=== PATIENT | female | born 1935 | race Two or more races ===

== ENCOUNTER 2016-11-19 10:22 | Observation (INO) | payer OTHER ==
[2016-11-19] MEDS ORDERED: ASPIRIN 81 MG CHEWABLE TABLETS PO ONE (10:53)
[2016-11-19] MEDS ORDERED: ASPIRIN 81 MG CHEWABLE TABLETS ONE (11:04)
[2016-11-19 11:15] LABS: EOSINOPHIL 2.3 % (0-4.5); MCH 33.1 pg (25.7-33.7); MCHC 33.7 g/dl (32.0-36.0); MEAN CELL VOLUME 98.1 fl (80-96); MEAN PLT VOLUME 8.1 fl (7.5-11.1); PLATELET COUNT 231 K/MM3 (134-434); RDW 14.3 % (11.6-15.6); WHITE BLOOD COUNT 4.6 K/mm3 (4.0-10.0)
--- NOTE | 2016-11-19 11:25 | PDOC ---
History of Present Illness - General Chief Complaint: Chest Pain Stated Complaint: CHEST PAIN Time Seen by Provider: 11/19/16 10:47 History Source: Patient Exam Limitations: No Limitations - History of Present Illness Initial Comments: 11/19/16 11:23 81-year-old female presents to the ED with complaints of left-sided chest pressure that began upon awakening this morning. Patient denies associated symptoms such as dizziness, nausea, diaphoresis, palpitations, shortness of breath, or pain worsened with movement. 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 Patient states did not take any aspirin and decided come to the ER for further evaluation. Patient denies recent illness, recent change in medications, recent fever, cough , recent travel, or recent injury. Presenting Symptoms: Chest Pain Timing/Duration: reports: constant Severity/Quality: reports: moderate, pressure Location: reports: substernal Chest Pain Radiation: reports: no radiation Activities at Onset: reports: none Prior Chest Pain/Cardiac Workup: reports: Echocardiography Nitro Today/Relief: Yes: no nitro taken today Aspirin Received prior to arrival (Core Measure): Yes: no aspirin today, 81 mg x 2, provided by ED Associated Symptoms: Yes: Chest Pain/pressure Past History - Past Medical History Allergies/Adverse Reactions: Allergies Allergy/AdvReac Type Severity Reaction Status Date / Time No Known Allergies Allergy Verified 11/19/16 10:35 Home Medications: Ambulatory Orders Amlodipine Besylate 5 mg PO DAILY 11/19/16 Clopidogrel Bisulfate [Plavix -] 75 mg PO DAILY 11/19/16 Losartan Potassium 100 mg PO DAILY 11/19/16 Cardiac Disorders: Yes (CAD) HTN: Yes - Surgical History Cholecystectomy: Yes - Psycho/Social/Smoking Cessation Hx Anxiety: No Suicidal Ideation: No Smoking History: Never smoked Have you smoked in the past 12 months: No Hx Alcohol Use: No Drug/Substance Use Hx: No Substance Use Type: None Patient Lives Alone: No Review of Systems - Review of Systems Able to Perform ROS?: Yes Constitutional: No: Symptoms Reported HEENTM: No: Symptoms Reported Respiratory: No: Symptoms reported Cardiac (ROS): Yes: Chest Pain ABD/GI: No: Symptoms Reported : No: Symptoms Reported Musculoskeletal: No: Symptoms Reported Integumentary: No: Symptoms Reported Neurological: No: Symptoms reported Endocrine: No: Symptoms Reported Hematologic/Lymphatic: No: Symptoms Reported *Physical Exam - Vital Signs Last Vital Signs Temp Pulse Resp BP Pulse Ox 97.9 F 78 18 145/69 97 11/19/16 10:24 11/19/16 10:24 11/19/16 10:24 11/19/16 10:24 11/19/16 10:24 - Physical Exam General Appearance: Yes: Nourished, Appropriately Dressed. No: Apparent Distress HEENT: positive: EOMI, BECKIE. negative: Pale Conjunctivae Neck: positive: Supple Respiratory/Chest: positive: Lungs Clear, Normal Breath Sounds. negative: Chest Tender, Respiratory Distress, Accessory Muscle Use Cardiovascular: positive: Regular Rhythm, Regular Rate. negative: Murmur Gastrointestinal/Abdominal: positive: Soft. negative: Distended, Tenderness Extremity: positive: Normal Capillary Refill. negative: Pedal Edema Integumentary: positive: Normal Color, Warm, Moist Neurologic: positive: Motor Strength 5/5 (ambulatory) Heart Score/ECG Review - History History: Slightly suspicious - Electrocardiogram EKG: Normal - Age Age: >/= 65 - Risk Factors Risk Factors Heart Score: Yes Hx Hypertension, Yes Positive family hx of cardiac disease Based on the list above the patient has:: 1-2 risk factors - Troponin Troponin: </= normal limit - Score Heart Score - Total: 3 - ECG Intrepretation Rhythm: Regular Rhythm (lvh, rate 76. No previous for comparison. QTC 474) ED Treatment Course - LABORATORY CBC & Chemistry Diagram: 11/19/16 Unknown 11/19/16 Unknown - ADDITIONAL ORDERS Additional order review: Laboratory Results 11/19/16 11/19/16 Unknown Unknown INR 1.08 Sodium 142 Potassium 4.5 Chloride 106 Carbon Dioxide 31 Anion Gap 5 L BUN 17 D Creatinine 0.9 Creat Clearance w eGFR 59.94 Random Glucose 99 Calcium 8.5 Magnesium 2.3 Total Bilirubin 0.6 D AST 29 D ALT 28 Alkaline Phosphatase 79 D Creatine Kinase 234 H D CK-MB (CK-2) 2.747 Troponin I < 0.02 Total Protein 7.3 Albumin 3.8 D 11/19/16 Unknown RBC 3.81 MCV 98.1 H MCHC 33.7 RDW 14.3 MPV 8.1 Neutrophils % 58.0 Lymphocytes % 28.3 Monocytes % 10.4 H Eosinophils % 2.3 Basophils % 1.0 - RADIOLOGY Radiology Studies Ordered: Category Date Time Status CHEST X-RAY PORTABLE* [RAD] Stat Radiology 11/19/16 10:54 Completed - Medications Given in the ED: ED Medications Discontinued Medications Generic Name Dose Route Start Last Admin Trade Name Sherrie PRN Reason Stop Dose Admin Aspirin 162 mg 11/19/16 10:53 11/19/16 11:17 Asa - PO 11/19/16 10:54 162 mg ONCE ONE Administration Medical Decision Making - Medical Decision Making 11/19/16 11:24 Patient states since around 8 AM has had constant left-sided chest pressure without associated symptoms. Patient on exam had no reproducible pain. Vital signs stable. Patient does have history of CAD. Heart score was 3. Patient will be ordered for full cardiac workup included baby aspirin oxygen and will consult her PCP once diagnostics are resulted 11/19/16 12:26 Laboratory Tests 11/19/16 11/19/16 11/19/16 Unknown Unknown Unknown WBC 4.6 Hgb 12.6 Hct 37.3 Plt Count 231 Neutrophils % 58.0 INR 1.08 Sodium 142 Potassium 4.5 Chloride 106 Carbon Dioxide 31 Anion Gap 5 L BUN 17 D Creatinine 0.9 Random Glucose 99 Calcium 8.5 Magnesium 2.3 AST 29 D ALT 28 Creatine Kinase 234 H D CK-MB (CK-2) 2.747 Troponin I < 0.02 Patient still complaining of left-sided chest pressure with only slight resolution after receiving aspirin. Patient will be ordered for 2 of morphine. Daughter was able to contact the son who states patient has been seen by Dr. Sagastume at the clinic. Consultation will be placed in the computer for Dr. Sagastume and spoke to the hospitalist who accepted the patient to telemetry observation. 11/19/16 12:34 Dr. Salinas here in the ED and discussed case with him. *DC/Admit/Observation/Transfer Diagnosis at time of Disposition: Chest pain Qualifiers: Chest pain type: unspecified Qualified Code(s): R07.9 - Chest pain, unspecified - Discharge Dispostion Admit: Yes Decision to Admit order Date/Time: Decision to Admit Order Category Date Time Status Decision to Admit to Hospital Routine Admission 11/19/16 12:32 Active - Referrals Referrals: Erica Hill MD [Primary Care Provider] -
[2016-11-19 11:27] LABS: INR 1.08 (0.82-1.09); PROTHROMBIN TIME (PATIENT) 11.9 SEC (9.98-11.88)
[2016-11-19 11:48] LABS: ALBUMIN 3.8 g/dl (3.4-5.0); ANION GAP 5 (8-16); BILIRUBIN,TOTAL 0.6 mg/dL (0.2-1.0); CALCIUM 8.5 mg/dL (8.5-10.1); CO2 31 mmol/L (21-32); COCKROFT - GAULT 63.1465; CREATININE 0.9 mg/dL (0.55-1.02); GLUCOSE,RANDOM 99 mg/dL (74-106); MAGNESIUM 2.3 mg/dL (1.8-2.4); SGOT/AST 29 U/L (15-37); SGPT/ALT 28 U/L (12-78); TOT PROT 7.3 g/dl (6.4-8.2)
[2016-11-19 11:50] LABS: ALK PHOS 79 U/L (45-117); TROPONIN I < 0.02 ng/ml (0.00-0.05)
[2016-11-19] MEDS ORDERED: morphine CARPU-JECT 2 MG/1 ML DISP.SYRIN IVPUSH ONE (12:27)
[2016-11-19] MEDS ORDERED: morphine CARPU-JECT 2 MG/1 ML DISP.SYRIN ONE (12:33)
--- NOTE | 2016-11-19 12:55 | CON.CARD ---
Consult Consult Specialty:: cardio Referred by:: ER (george) Reason for Consultation:: cp - History of Present Illness Chief Complaint: cp History of Present Illness: 81 female here with cp. says cp present since 7am. has not resolved. L pectoral diffuse, assctd with pain in L upper neck near jaw, and L forearm--? if radiates or not (dtr translating). the pain has not resolved since it began. has had it off and on rarely for about 1 yr but usually doesn't last this long. pain much worse when tries to lift left arm. no pleuritic or other motion component. denies assctd diaph or sob. + dizzy denies prior h/o CO or CAD/stent PMH: HTN denies DM never cigs FH: mother CAD/CO - Alcohol/Substance Use Hx Alcohol Use: No - Smoking History Smoking history: Never smoked Have you smoked in the past 12 months: No Home Medications - Allergies Allergies/Adverse Reactions: Allergies Allergy/AdvReac Type Severity Reaction Status Date / Time No Known Allergies Allergy Verified 11/19/16 10:35 - Home Medications Home Medications: Ambulatory Orders Amlodipine Besylate 5 mg PO DAILY 11/19/16 Clopidogrel Bisulfate [Plavix -] 75 mg PO DAILY 11/19/16 Losartan Potassium 100 mg PO DAILY 11/19/16 Review of Systems - Review of Systems Constitutional: denies: Chills, Fever Eyes: denies: Eye Pain HENT: denies: Nasal Congestion Neck: denies: Stiffness Cardiovascular: denies: Palpitations Respiratory: denies: Orthopnea, PND Gastrointestinal: denies: Diarrhea, Rectal Bleeding Genitourinary: denies: Burning, Hematuria Musculoskeletal: denies: Muscle Pain Integumentary: denies: Rash Neurological: denies: Numbness, Seizure, Syncope Endocrine: denies: Excessive Sweating Hematology/Lymphatic: denies: Excessive Bleeding Vital Signs: Vital Signs Temperature 97.9 F 11/19/16 10:24 Pulse Rate 68 11/19/16 12:40 Respiratory Rate 20 11/19/16 12:40 Blood Pressure 148/83 11/19/16 12:40 O2 Sat by Pulse Oximetry (%) 100 11/19/16 12:40 Constitutional: Yes: Well Nourished, No Distress Eyes: No: Sclera Icterus HENT: No: Nasal Congestion Neck: No: Decreased ROM Respiratory: Yes: CTA Bilaterally. No: Accessory Muscle Use, Rales, Wheezes Gastrointestinal: Yes: Normal Bowel Sounds. No: Distention, Hepatomegaly, Palpable Mass, Tenderness Cardiovascular: Yes: Regular Rate and Rhythm, Other (++tenderness to palpation L pectoral (doesn't reproduce pain)) JVD: No Carotid Bruit: No PMI: Non-Displaced Heart Sounds: Yes: S1, S2. No: Gallop Murmur: No: Systolic Murmur, Diastolic Murmur Musculoskeletal: Yes: Other (No kyphosis) Extremities: No: Cold, Cyanosis Edema: No Peripheral Pulses: 2+ Left Carotid, 2+ Right Carotid, 2+ Left Doralis Pedis, 2+ Right Dorsalis Pedis Integumentary: No: Jaundice Neurological: Yes: Alert, Oriented (x3) Psychiatric: No: Agitated - Other Data Labs, Other Data: CBC, BMP 11/19/16 Unknown 11/19/16 Unknown INR, PTT INR 1.08 (0.82-1.09) 11/19/16 Unknown Troponin, BNP 11/19/16 Unknown Troponin I < 0.02 Troponin, BNP 11/19/16 Unknown Troponin I < 0.02 Laboratory Tests 11/19/16 11/19/16 Unknown Unknown WBC 4.6 Hgb 12.6 Plt Count 231 Sodium 142 Potassium 4.5 BUN 17 D Creatinine 0.9 AST 29 D ALT 28 Creatine Kinase 234 H D Troponin I < 0.02 ekg: NSR, normal axis/intervals. no path q. ? LVH. NSST-T lateral/infer leads ( no old) Imaging - Results Chest X-ray: Report Reviewed (weak insp effort, no chf or infiltrate seen) Assessment/Plan atypical CP: -unremitting pain since 7am, suspect m-skel etiology given exacerbation with lifting L arm -marked tenderness to palpation in this area -chronic sx, also fits with m-skel etiology -denies prior CAD hx, says she sees rudolph at [address] (will check office chart later) -ecg with nonspecific ST-T, no old to compare at present -cardiac enz neg x 1--rpt at 8 hrs -d/w'd JARAD Moeller in ER: given morphine 10min ago--if no improvement after 30 min, rec dose of toradol or 600mg motrin--if pain persists, give trial of SL nitro but doubt will have effect -further decisions about stress testing (inpt vs outpt) depending on office records review and clinical course HTN: -bp conrolled -cont home meds
[2016-11-19] MEDS ORDERED: amLODIPine BESYLATE 5 MG TABLET (FP) ONE (13:09)
[2016-11-19] MEDS: amLODIPine BESYLATE 5 MG TABLET (FP) PO SCH (13:16)
[2016-11-19 14:39] LABS: THYROID STIMULATING HORMONE 0.19 uIU/ml (0.358-3.74)
--- NOTE | 2016-11-19 15:20 | EKG ---
Test Reason : Blood Pressure : / mmHG Vent. Rate : 076 BPM Atrial Rate : 076 BPM P-R Int : 164 ms QRS Dur : 096 ms QT Int : 422 ms P-R-T Axes : 004 020 140 degrees QTc Int : 474 ms NORMAL SINUS RHYTHM MINIMAL VOLTAGE CRITERIA FOR LVH, MAY BE NORMAL VARIANT NONSPECIFIC T WAVE ABNORMALITY PROLONGED QT ABNORMAL ECG WHEN COMPARED WITH ECG OF 04-MAY-2016 22:03, NO SIGNIFICANT CHANGE WAS FOUND Confirmed by NIRMALA FISHMAN, KENYON ([id number]) on 11/19/2016 3:20:13 PM Referred By: Confirmed By:KENYON SILVESTRE MD
--- NOTE | 2016-11-19 15:28 | HP ---
CHIEF COMPLAINT: Chest pain PCP: Dr. Erica Hill HISTORY OF PRESENT ILLNESS: Patient is am 81 year old female with a PMHx of HTN who presented for left sided chest pain that started suddenly yesterday evening when sitting at home her usual state of health. Patient describes the pain as a pressure like pain radiating to the left jaw and neck and constant in nature. She reports she ignored it in when it first happened yesterday but woke up this morning with similar pain, which prompted this hospital visit. Patient states pain is not exacerbated with movement and there are no alleviating factors. Patient reports associated symptoms of a dry cough that has been going on for several years but has worsened the last few nights especially when laying down at night. Otherwise, patient denies fever, chills, nausea, vomiting, abdominal pain, palpitations. Patient denies any recent illnesses or change in medications. She denies being around sick contacts. Last Echo was done May 2016 and was normal with no motion wall abnormalities or LV dysfunction. ER course was notable for: (1) EKG NSR with no ST elevations (2) First set troponin negative (3) Plavix 75mg given Recent Travel: Denies PAST MEDICAL HISTORY: HTN PAST SURGICAL HISTORY: Cholecystectomy Social History: Smoking: Denies Alcohol: Denies Drugs: Denies Family History: Noncontributory Allergies: No Known Allergies Allergy (Verified 11/19/16 10:35) HOME MEDICATIONS: Home Medications Medication Instructions Recorded Amlodipine Besylate 5 mg PO DAILY 11/19/16 Clopidogrel Bisulfate [Plavix -] 75 mg PO DAILY 11/19/16 Losartan Potassium 100 mg PO DAILY 11/19/16 REVIEW OF SYSTEMS CONSTITUTIONAL: Absent: fever, chills, diaphoresis, generalized weakness, malaise, loss of appetite, weight change HEENT: Absent: rhinorrhea, nasal congestion, throat pain, throat swelling, difficulty swallowing, mouth swelling, ear pain, eye pain, visual changes CARDIOVASCULAR: chest pain Absent: syncope, palpitations, irregular heart rate, lightheadedness, peripheral edema RESPIRATORY: Dry cough, orthopnea Absent: shortness of breath, dyspnea with exertion, wheezing, stridor, hemoptysis GASTROINTESTINAL: Absent: abdominal pain, abdominal distension, nausea, vomiting, diarrhea, constipation, melena, hematochezia GENITOURINARY: Absent: dysuria, frequency, urgency, hesitancy, hematuria, flank pain, genital pain MUSCULOSKELETAL: Absent: myalgia, arthralgia, joint swelling, back pain, neck pain SKIN: Absent: rash, itching, pallor HEMATOLOGIC/IMMUNOLOGIC: Absent: easy bleeding, easy bruising, lymphadenopathy, frequent infections ENDOCRINE: Absent: unexplained weight gain, unexplained weight loss, heat intolerance, cold intolerance NEUROLOGIC: Absent: headache, focal weakness or paresthesias, dizziness, unsteady gait, seizure, mental status changes, bladder or bowel incontinence PSYCHIATRIC: Absent: anxiety, depression, suicidal or homicidal ideation, hallucinations. PHYSICAL EXAMINATION Vital Signs - 24 hr 11/19/16 12:40 Pulse Rate [ 68 Left Radial] Respiratory 20 Rate Blood Pressure 148/83 [Left Arm] O2 Sat by Pulse 100 Oximetry (%) GENERAL: Awake, alert, and fully oriented, in no acute distress. HEAD: Normal with no signs of trauma. EYES: Pupils equal, round and reactive to light, extraocular movements intact, sclera anicteric, conjunctiva clear. NECK: (+) JVD, No bruits appreciated LUNGS: Breath sounds equal, clear to auscultation bilaterally. No wheezes, and no crackles. No accessory muscle use. CHEST: Moderate left pectoris tenderness upon palpation. Regular rate and rhythm , normal S1 and S2 without murmur, rub or gallop. ABDOMEN: Soft, nontender, not distended, normoactive bowel sounds, no guarding, no rebound, no masses. UPPER EXTREMITIES: No peripheral edema. LOWER EXTREMITIES: No peripheral edema. NEUROLOGICAL: Normal speech. Motor strength 5/5. Sensory intact PSYCHIATRIC: Cooperative. Good eye contact. Appropriate mood and affect. SKIN: Warm, dry, normal turgor, no rashes or lesions noted, normal capillary refill. Laboratory Results - last 24 hr 11/19/16 11/19/16 11/19/16 13:46 Unknown Unknown WBC 4.6 RBC 3.81 Hgb 12.6 Hct 37.3 MCV 98.1 H MCHC 33.7 RDW 14.3 Plt Count 231 MPV 8.1 Neutrophils % 58.0 Lymphocytes % 28.3 Monocytes % 10.4 H Eosinophils % 2.3 Basophils % 1.0 INR 1.08 Sodium Potassium Chloride Carbon Dioxide Anion Gap BUN Creatinine Creat Clearance w eGFR Random Glucose Calcium Magnesium Total Bilirubin AST ALT Alkaline Phosphatase Creatine Kinase CK-MB (CK-2) Troponin I B-Natriuretic Peptide 95.68 Total Protein Albumin TSH 0.19 L 11/19/16 Unknown WBC RBC Hgb Hct MCV MCHC RDW Plt Count MPV Neutrophils % Lymphocytes % Monocytes % Eosinophils % Basophils % INR Sodium 142 Potassium 4.5 Chloride 106 Carbon Dioxide 31 Anion Gap 5 L BUN 17 D Creatinine 0.9 Creat Clearance w eGFR 59.94 Random Glucose 99 Calcium 8.5 Magnesium 2.3 Total Bilirubin 0.6 D AST 29 D ALT 28 Alkaline Phosphatase 79 D Creatine Kinase 234 H D CK-MB (CK-2) 2.747 Troponin I < 0.02 B-Natriuretic Peptide Total Protein 7.3 Albumin 3.8 D TSH ASSESSMENT/PLAN: Patient is am 81 year old female with a PMHx of HTN who presented for left sided chest pain that started suddenly yesterday. Patient was found to have moderate pain on palpation of left chest wall. Patient admitted for further monitoring and management. Atypical Chest Pain -Likely musculoskeletal due to dry cough for several years, exacerbated pain when palpating left pectoris area and when lifting arm -HEART Score 5 -Intermediate Risk for CAD, cardiology consult placed -Troponin negative x1. Repeat Trops pending -Last Echo done on 05/2016 normal valve function with no LV dysfunction, as per cardiology. Repeat ECHO ordered -History of orthopnea and dry cough, BNP ordered -ASA 162 given -Plavix 75mg ordered -Tylenol 650mg PO PRN for musculoskeletal pain -Cardiac monitoring -Lipid panel and A1C ordered -Cardiology consult appreciated HTN-Controlled -Continue Amlodipine Besylate 5mg daily -Continue Losartan Potassium 100mg daily -Continue to monitor BP F/E/N -No fluids -Electrolytes wnl -Diabetic/Sodium controlled diet Prophylaxis -Heparin 5000 units SQ BID Disposition -Admitted to telemetry for overnight monitoring Visit type - Emergency Visit Emergency Visit: Yes ED Registration Date: 11/19/16 Care time: The patient presented to the Emergency Department on the above date and was hospitalized for further evaluation of their emergent condition. - New Patient This patient is new to me today: Yes Date on this admission: 11/21/16 - Critical Care Critical Care patient: No
--- NOTE | 2016-11-19 15:36 | PN ---
Teaching Attending Note Name of Resident: Juliette Acosta ATTENDING PHYSICIAN STATEMENT I saw and evaluated the patient. I reviewed the resident's note and discussed the case with the resident. I agree with the resident's findings and plan as documented. SUBJECTIVE: 81 yrs old F lives at home H/O HTN, High Cholesterol, no H/O CAD or CHF present with Left sided pectoral chest pain that started yesterday radiates to Left shoulder and neck with chest wall tenderness,, patient has been having dry cough for past few days that worsened at night with excertional SOB, no fever, expectoration or chills. 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 non focal LABS; Reviewed Laboratory Results - last 24 hr CBC, BMP 11/19/16 Unknown 11/19/16 Unknown Troponin I Normal ASSESSMENT AND PLAN:81 yrs old F lives at home H/O HTN, High Cholesterol, no H/ O CAD or CHF present with Left sided pectoral chest pain that started yesterday radiates to Left shoulder and neck with chest wall tenderness,, patient has been having dry cough for past few days that worsened at nights, normal serial CE and non dynamic EKG; Impression Atypical chest Pain with multiple CAd risk, patient has intermediate risk for CAd will F/u serial CE, Cardiology consult recommendation , considering cough F/U Pro BNP, ECHO to r/O diastolic dysfunctions/CHF, ASa, Statin, pain medication as pain has musculoskeletal component. F/U TSH, Lipid Panel, HbA1C Discussed with the customer experience intern.
[2016-11-19 18:41] VITALS: BMI 35.3
[2016-11-19] MEDS ORDERED: ACETAMINOPHEN 325 MG TABLET (FP) PO PRN (18:55)
[2016-11-19] MEDS: HEPARIN NA (PORCINE) 5,000 UNITS/ML 1ML VIAL SQ SCH (22:22)
[2016-11-19 22:31] LABS: TROPONIN I < 0.02 ng/ml (0.00-0.05)
[2016-11-20 07:41] LABS: INR 1.06 (0.82-1.09); PROTHROMBIN TIME (PATIENT) 11.7 SEC (9.98-11.88)
[2016-11-20 07:57] VITALS: BP 122/69; PULSE 75; TEMP 98
--- NOTE | 2016-11-20 08:55 | PN ---
Progress Note, Physician Chief Complaint: cp History of Present Illness: cp much resolved no sob, palpit, syncope - Current Medication List Current Medications: Active Medications Acetaminophen (Tylenol -) 650 mg PO Q6H PRN PRN Reason: FEVER OR PAIN Amlodipine Besylate (Norvasc -) 5 mg PO DAILY [facility] Last Admin: 11/19/16 13:16 Dose: 5 mg Clopidogrel Bisulfate (Plavix -) 75 mg PO DAILY [facility] Heparin Sodium (Porcine) (Heparin -) 5,000 unit SQ BID [facility] Last Admin: 11/19/16 22:22 Dose: 5,000 unit Losartan Potassium (Cozaar -) 100 mg PO DAILY [facility] - Objective Vital Signs: Vital Signs Temperature 98.0 F 11/20/16 07:56 Pulse Rate 75 11/20/16 07:56 Respiratory Rate 18 11/20/16 07:56 Blood Pressure 122/69 11/20/16 07:56 O2 Sat by Pulse Oximetry (%) 96 11/20/16 05:00 Constitutional: Yes: Well Nourished, No Distress, Calm Cardiovascular: Yes: Regular Rate and Rhythm, S1, S2. No: Gallop, Murmur Respiratory: Yes: Regular, CTA Bilaterally. No: Accessory Muscle Use, Rales, Wheezes Extremities: No: Cold Edema: No Neurological: Yes: Alert, Oriented Psychiatric: No: Agitated Labs: CBC, BMP 11/19/16 Unknown 11/19/16 Unknown INR, PTT INR 1.06 (0.82-1.09) 11/20/16 05:42 - ....Imaging EKG: Other (tele: NSR) Assessment/Plan MPI 05/27 (vee): no STs. no ischemia. nl EF Echo 05/27: nl lv/rv, no sig valve path atypical CP: -chronic sx of L shoulder/neck/chest pain, saw rudolph for same 05/27 -nuclear stress test negative 05/27 -strong positional component with elevation of L arm -marked tenderness to palpation in L pectoral noted as well -this is m-skel system, should have outpt eval by ortho/pain mgmt/physiatry re: c-spine or L shoulder pathology HTN: -bp conrolled -cont home meds NO FURTHER CARDIAC W/U INDICATED--ok for d/c from [facility] p.o.v.
[2016-11-20 09:07] LABS: CHOLESTEROL 158 mg/dL (50-200); LDL CHOLESTEROL (ONLY SJRH) 91 mg/dL (5-100)
[2016-11-20] MEDS: HEPARIN NA (PORCINE) 5,000 UNITS/ML 1ML VIAL SQ SCH (09:52)
[2016-11-20] MEDS: amLODIPine BESYLATE 5 MG TABLET (FP) PO SCH (09:53)
[2016-11-20] MEDS ORDERED: PATIENT'S OWN MEDICATION (NON-FORMULARY) (Losartan Potassium [Losartan Potassium] 100 MG) PO SCH (10:00)
[2016-11-20] MEDS ORDERED: LOSARTAN POTASSIUM 50 MG TABLET (FP) PO SCH (10:00)
[2016-11-20] MEDS ORDERED: amLODIPine BESYLATE 5 MG TABLET (FP) PO SCH (10:00)
[2016-11-20] MEDS ORDERED: CLOPIDOGREL BISULFATE 75 MG TABLET (FP) PO SCH (10:00)
--- NOTE | 2016-11-20 10:55 | PN ---
Physical Exam: SUBJECTIVE: Patient seen and examined. She says she has discomfort in the left side of her neck and anterior left shoulder. OBJECTIVE: Vital Signs Period Temp Pulse Resp BP Sys/Beach Pulse Ox Last 24 Hr 97.6 F-98.9 F 67-76 18-20 115-148/60-83 95-100 GENERAL: The patient is awake, alert, and fully oriented, in no acute distress. NECK: Supple. No spinal/paraspinal tenderness. Decreased ROM secondary to pain. LUNGS: Breath sounds equal, clear to auscultation bilaterally, no wheezes, no crackles, no accessory muscle use. HEART: Regular rate and rhythm, S1, S2 without murmur, rub or gallop. ABDOMEN: Obese, soft, nontender, nondistended, normoactive bowel sounds, no guarding, no rebound, no hepatosplenomegaly, no masses. EXTREMITIES: 2+ pulses, warm, well-perfused, no edema. Decreased ROM right shoulder secondary to pain. Laboratory Results - last 24 hr 11/19/16 11/19/16 11/19/16 13:46 21:40 Unknown WBC 4.6 RBC 3.81 Hgb 12.6 Hct 37.3 MCV 98.1 H MCHC 33.7 RDW 14.3 Plt Count 231 MPV 8.1 Neutrophils % 58.0 Lymphocytes % 28.3 Monocytes % 10.4 H Eosinophils % 2.3 Basophils % 1.0 INR PTT (Actin FS) Sodium Potassium Chloride Carbon Dioxide Anion Gap BUN Creatinine Creat Clearance w eGFR Random Glucose Hemoglobin A1c % Calcium Magnesium Total Bilirubin AST ALT Alkaline Phosphatase Creatine Kinase 207 H CK-MB (CK-2) 2.355 Troponin I < 0.02 B-Natriuretic Peptide 95.68 Total Protein Albumin Triglycerides Cholesterol Total LDL Cholesterol HDL Cholesterol TSH 0.19 L 11/19/16 11/19/16 11/20/16 Unknown Unknown 05:42 WBC RBC Hgb Hct MCV MCHC RDW Plt Count MPV Neutrophils % Lymphocytes % Monocytes % Eosinophils % Basophils % INR 1.08 1.06 PTT (Actin FS) 31.0 Sodium 142 Potassium 4.5 Chloride 106 Carbon Dioxide 31 Anion Gap 5 L BUN 17 D Creatinine 0.9 Creat Clearance w eGFR 59.94 Random Glucose 99 Hemoglobin A1c % Calcium 8.5 Magnesium 2.3 Total Bilirubin 0.6 D AST 29 D ALT 28 Alkaline Phosphatase 79 D Creatine Kinase 234 H D CK-MB (CK-2) 2.747 Troponin I < 0.02 B-Natriuretic Peptide Total Protein 7.3 Albumin 3.8 D Triglycerides Cholesterol Total LDL Cholesterol HDL Cholesterol TSH 11/20/16 11/20/16 05:42 05:42 WBC RBC Hgb Hct MCV MCHC RDW Plt Count MPV Neutrophils % Lymphocytes % Monocytes % Eosinophils % Basophils % INR PTT (Actin FS) Sodium Potassium Chloride Carbon Dioxide Anion Gap BUN Creatinine Creat Clearance w eGFR Random Glucose Hemoglobin A1c % 6.4 H Calcium Magnesium Total Bilirubin AST ALT Alkaline Phosphatase Creatine Kinase CK-MB (CK-2) Troponin I B-Natriuretic Peptide Total Protein Albumin Triglycerides 113 Cholesterol 158 Total LDL Cholesterol 91 HDL Cholesterol 53 TSH Active Medications Generic Name Dose Route Start Last Admin Trade Name Freq PRN Reason Stop Dose Admin Acetaminophen 650 mg 11/19/16 18:55 Tylenol - PO Q6H PRN FEVER OR PAIN Amlodipine Besylate 5 mg 11/19/16 12:58 11/20/16 09:53 Norvasc - PO 5 mg DAILY KENIA Administration Clopidogrel Bisulfate 75 mg 11/20/16 10:00 11/20/16 09:53 Plavix - PO 75 mg DAILY KENIA Administration Heparin Sodium (Porcine) 5,000 unit 11/19/16 22:00 11/20/16 09:52 Heparin - SQ 5,000 unit BID KENIA Administration Losartan Potassium 100 mg 11/20/16 10:00 11/20/16 09:53 Cozaar - PO 100 mg DAILY KENIA Administration ASSESSMENT/PLAN: This is an 81 year old woman with a history of HTN who presented to the ER with left sided chest pain. 1. Atypical chest pain, likely musculoskeletal - Troponin negative x 2 - Had negative nuclear stress test 05/27 - Outpatient orthopedic or physiatry evaluation 2. HTN - Continue Norvasc, Cozaar 3. Ok for discharge home with follow up with Dr. [facility] Visit type - Emergency Visit Emergency Visit: Yes ED Registration Date: 11/19/16 Care time: The patient presented to the Emergency Department on the above date and was hospitalized for further evaluation of their emergent condition. - New Patient This patient is new to me today: Yes Date on this admission: 11/20/16 - Critical Care Critical Care patient: No - Discharge Referral Referred to [facility] Med P.C.: No
== END 2016-11-20 11:47 | disposition home or self-care (01) ==
LOC: JER 10:22 → JERBED 12:32 → J4W 17:56
PROVIDERS: ADMIT Internal Medicine; ATTEND Internal Medicine
PROC: 3E033NZ Introduction of Analgesics, Hypnotics, Sedatives into Peripheral Vein, Percutaneous Approach (ICD-10-PCS; principal; 2016-11-19)
DX: R07.89 Other chest pain (principal); I25.10 Atherosclerotic heart disease of native coronary artery without angina pectoris; I10 Essential (primary) hypertension
CPT/HCPCS: 36415; 71010-TC; 80053; 80061; 82550; 82553; 83036; 83721; 83735; 83880; 84443; 84484; 85025; 85610; 85730; 93005; 93010; 99284-25; G0378; J1644

== ENCOUNTER 2018-01-19 13:31 | Observation (INO) | payer OTHER ==
--- NOTE | 2018-01-19 13:55 | PDOC ---
History of Present Illness - General Chief Complaint: Chest Pain Stated Complaint: CHEST PAIN Time Seen by Provider: 01/19/18 13:55 History Source: Patient Exam Limitations: No Limitations - History of Present Illness Initial Comments: 01/19/18 20:23 82 yo F with hx of HTN and HLD presenting with chest pain. She states it began at 10 pm last night in her left chest with radiation to her left arm and neck. She states the pain lasted until 4am today with residual left sided neck pain. The pain was described as sharp, 10/10 without aggravating factors. Denies associated SOB, lightheadedness, and trauma during this episode. This occurred while at rest. Currently, the neck pain is dull without radiation that is in the left sided of the neck from the trapezius to the pre-auricular area of the ear. Denies the following: fevers, nausea, vomiting, current chest pain, SOB, abdominal pain, diarrhea, dizziness, dysuria, and hematuria. Endorses left arm tingling. Pmhx: HTN, HLD Shx: None Meds: Does not know what she takes Allergies: None Social hx: Denies tobacco, alcohol, and drug use. Past History - Past Medical History Allergies/Adverse Reactions: Allergies Allergy/AdvReac Type Severity Reaction Status Date / Time No Known Allergies Allergy Verified 01/19/18 13:42 Home Medications: Ambulatory Orders Amlodipine Besylate 5 mg PO DAILY 11/19/16 Clopidogrel Bisulfate [Plavix -] 75 mg PO DAILY 11/19/16 Losartan Potassium 100 mg PO DAILY 11/19/16 Anemia: No Asthma: No Cancer: No Cardiac Disorders: Yes (CAD) CVA: No COPD: No CHF: No Dementia: No Diabetes: No GI Disorders: Yes (acid reflux) Disorders: No HTN: Yes Hypercholesterolemia: Yes Liver Disease: No Seizures: No - Surgical History Abdominal Surgery: Yes (gallbladder) Appendectomy: No Cardiac Surgery: No Cholecystectomy: Yes Lung Surgery: No Neurologic Surgery: No Orthopedic Surgery: No - Suicide/Smoking/Psychosocial Hx Smoking History: Never smoked Have you smoked in the past 12 months: No Hx Alcohol Use: No Drug/Substance Use Hx: No Substance Use Type: None Hx Substance Use Treatment: No Review of Systems - Review of Systems Able to Perform ROS?: Yes Constitutional: No: Chills, Diaphoresis, Fever HEENTM: Yes: Other (neck pain). No: Recent change in vision, Nose Pain, Throat Pain, Mouth Pain Respiratory: No: Cough, Shortness of Breath Cardiac (ROS): No: Chest Pain, Lightheadedness, Palpitations ABD/GI: No: Constipated, Diarrhea, Nausea, Rectal Bleeding, Vomiting, Tarry Stools : No: Burning, Dysuria, Hematuria Musculoskeletal: Yes: Muscle Pain (left side of neck and left shoulder). No: Back Pain Integumentary: No: Rash Neurological: Yes: Tingling (left arm). No: Headache, Numbness, Weakness, Unsteady Gait, Ataxia Psychiatric: No: Stressors Endocrine: No: Unexplained Weight Gain Hematologic/Lymphatic: No: Anemia *Physical Exam - Vital Signs Last Vital Signs Temp Pulse Resp BP Pulse Ox 98.6 F 90 17 137/80 97 01/19/18 13:42 01/19/18 13:42 01/19/18 13:42 01/19/18 13:42 01/19/18 13:42 - Physical Exam General Appearance: Yes: Nourished, Appropriately Dressed HEENT: positive: EOMI, BECKIE, Normal Voice Neck: positive: Tender lateral (left), Tender midline. negative: Lymphadenopathy (R), Lymphadenopathy (L) Respiratory/Chest: positive: Lungs Clear, Normal Breath Sounds Cardiovascular: positive: Regular Rhythm, Regular Rate, S1, S2. negative: Systolic Murmur Heart Score/ECG Review - History History: Moderately suspicious ED Treatment Course - LABORATORY CBC & Chemistry Diagram: 01/19/18 17:45 01/19/18 17:45 *DC/Admit/Observation/Transfer Diagnosis at time of Disposition: Chest pain Qualifiers: Chest pain type: unspecified Qualified Code(s): R07.9 - Chest pain, unspecified - Discharge Dispostion Decision to Admit order: Yes - Referrals - Patient Instructions - Post Discharge Activity
[2018-01-19] MEDS ORDERED: ASPIRIN 81 MG CHEWABLE TABLETS PO ONE (15:06)
[2018-01-19] MEDS ORDERED: ASPIRIN 81 MG CHEWABLE TABLETS ONE (15:44)
--- NOTE | 2018-01-19 16:18 | PDOC ---
Attending Attestation - Resident Resident Name: Sudarshan Arredondo - ED Attending Attestation I have performed the following: I have examined & evaluated the patient, The case was reviewed & discussed with the resident, I agree w/resident's findings & plan, Exceptions are as noted - HPI HPI: 01/19/18 16:26 Patient is an 82 year old female with a significant past medical history of HTN , HL who presents to the ED with complaints of left sided chest pain that began yesterday night at 10pm. Patient reports experiencing sudden onset of left sided chest pain that she states radiates up toward her left neck and down to her left arm. She reports left sided chest pain was a sharp constant 10/10 pain that subsided at 4 am, but states she currently still feels the left sided neck pain. Patient reports experiencing new onset of left upper quadrant pain, prompting her to come into the ED for further evaluation. Denies Sob. Denies nausea, vomiting. Denies contact with sick individuals, out of state travelling. Denies dysuria, hematuria. Denies extremity edema. Denies trauma to affected areas. Denies any other symptoms. Allergies: None Social history: No smoking. No alcohol. No illicit drugs. Surgical history: Cholecystectomy PMD: Dr. Nimesh Jaimes - Physicial Exam PE: 01/19/18 16:27 agree with resident exam - Medical Decision Making 01/19/18 16:35 82yo F hx HTN, HL presents to the ED with LSCP. Vitals/exam unremarkable. EKG with new biphasic t wave in V4. HS 6. Will need admission for ACS w/u. Plan -labs -xr -admit Heart Score/ECG Review - History History: Moderately suspicious - Electrocardiogram EKG: Non specific repolarization disturbance - Age Age: >/= 65 - Risk Factors Based on the list above the patient has:: >/=3 risk factors or Hx atherosclerotic disease - Troponin Troponin: </= normal limit - Score Heart Score - Total: 6 #1 01/19/18 16:40 Twelve-lead EKG was performed and reviewed by me. Normal sinus rhythm, rate 94. Normal axis. No ST elevation. Biphasic T waves in V4 through V6 and 1, aVL. When compared to EKG from November 2016, biphasic T-wave in V4 is new.
[2018-01-19 18:00] LABS: BASO % 0.8 % (0-2.0); EOS % 2.5 % (0-4.5); HEMATOCRIT 38.9 % (32.4-45.2); LYMPH % 27.2 % (8-40); MCHC 33.5 g/dl (32.0-36.0); MEAN CELL VOLUME 98.3 fl (80-96); MEAN PLT VOLUME 8.7 fl (7.5-11.1); NEUT % 60.5 % (42.8-82.8); PLATELET COUNT 274 K/MM3 (134-434); RBC 3.96 M/mm3 (3.60-5.2); RDW 13.8 % (11.6-15.6); WHITE BLOOD COUNT 8.2 K/mm3 (4.0-10.0)
[2018-01-19 18:12] LABS: INR 1.04 (0.83-1.09); PROTHROMBIN TIME (PATIENT) 11.8 SEC (9.7-13.0)
[2018-01-19 18:23] LABS: ALBUMIN 3.8 g/dl (3.4-5.0); ANION GAP 8 (8-16); BILIRUBIN,TOTAL 0.2 mg/dL (0.2-1.0); BLOOD UREA NITROGEN 16 mg/dL (7-18); CALCIUM 8.7 mg/dL (8.5-10.1); CHLORIDE 108 mmol/L (98-107); CO2 28 mmol/L (21-32); CREATININE 0.8 mg/dL (0.55-1.02); GLUCOSE,RANDOM 91 mg/dL (74-106); LIPASE 140 U/L (73-393); SGPT/ALT 27 U/L (12-78); SODIUM 144 mmol/L (136-145); TOT PROT 7.6 g/dl (6.4-8.2)
[2018-01-19 18:25] LABS: ALK PHOS 81 U/L (45-117)
[2018-01-19 18:30] LABS: POTASSIUM 4.2 mmol/L (3.5-5.1); SGOT/AST 23 U/L (15-37)
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
[2018-01-19 23:44] LABS: URINE APPEARANCE CLEAR; URINE BILIRUBIN NEGATIVE (<2.0 mg/dL); URINE COLOR YELLOW; URINE GLUCOSE (UA) NEGATIVE (NEGATIVE); URINE KETONE NEGATIVE (NEGATIVE); URINE LEUK ESTERASE TRACE (NEGATIVE); URINE NITRITE NEGATIVE (NEGATIVE); URINE PROTEIN NEGATIVE (NEGATIVE); URINE UROBILINOGEN NEGATIVE mg/dL (0.2-1.0)
[2018-01-19 23:56] LABS: EPI CELLS FEW /HPF (FEW); URINE BACTERIA RARE /hpf (NONE SEEN); URINE MUCUS RARE
[2018-01-20] MEDS ORDERED: ACETAMINOPHEN 325 MG TABLET (FP) PO PRN (01:52)
[2018-01-20 05:54] LABS: BASO % 0.6 % (0-2.0); EOS % 3.3 % (0-4.5); HEMOGLOBIN 11.8 GM/dL (10.7-15.3); LYMPH % 24.3 % (8-40); MCH 33.7 pg (25.7-33.7); MCHC 34.5 g/dl (32.0-36.0); MEAN CELL VOLUME 97.5 fl (80-96); MEAN PLT VOLUME 8.1 fl (7.5-11.1); MONO % 10.4 % (3.8-10.2); NEUT % 61.4 % (42.8-82.8); PLATELET COUNT 215 K/MM3 (134-434); RBC 3.49 M/mm3 (3.60-5.2); RDW 13.7 % (11.6-15.6); WHITE BLOOD COUNT 5.7 K/mm3 (4.0-10.0)
[2018-01-20 06:19] LABS: CHLORIDE 111 mmol/L (98-107); POTASSIUM 4.1 mmol/L (3.5-5.1); SODIUM 146 mmol/L (136-145)
[2018-01-20 06:25] LABS: ALBUMIN 3.2 g/dl (3.4-5.0); ALK PHOS 68 U/L (45-117); ANION GAP 7 (8-16); BILIRUBIN,TOTAL 0.4 mg/dL (0.2-1.0); BLOOD UREA NITROGEN 20 mg/dL (7-18); CALCIUM 8.4 mg/dL (8.5-10.1); CO2 28 mmol/L (21-32); CREATININE 0.7 mg/dL (0.55-1.02); GLUCOSE,RANDOM 92 mg/dL (74-106); MAGNESIUM 2.1 mg/dL (1.8-2.4); PHOSPHOROUS 3.9 mg/dL (2.5-4.9); SGOT/AST 17 U/L (15-37); SGPT/ALT 24 U/L (12-78); TOT PROT 6.2 g/dl (6.4-8.2)
--- NOTE | 2018-01-20 09:03 | EKG ---
Test Reason : Blood Pressure : / mmHG Vent. Rate : 073 BPM Atrial Rate : 073 BPM P-R Int : 188 ms QRS Dur : 098 ms QT Int : 428 ms P-R-T Axes : 027 000 039 degrees QTc Int : 471 ms SINUS RHYTHM WITH PREMATURE SUPRAVENTRICULAR COMPLEXES MINIMAL VOLTAGE CRITERIA FOR LVH, MAY BE NORMAL VARIANT NONSPECIFIC T WAVE ABNORMALITY PROLONGED QT ABNORMAL ECG WHEN COMPARED WITH ECG OF 19-NOV-2016 10:31, PREMATURE SUPRAVENTRICULAR COMPLEXES ARE NOW PRESENT Confirmed by PRIYA BROOKS MD ([id number]) on 01/20/2018 9:03:13 AM Referred By: Confirmed By:PRIYA BROOKS MD
--- NOTE | 2018-01-20 09:09 | PN ---
Physical Exam: SUBJECTIVE: Patient seen and examined OBJECTIVE: Vital Signs Temperature 97.7 F 01/20/18 06:33 Pulse Rate 93 H 01/20/18 06:33 Respiratory Rate 18 01/20/18 06:33 Blood Pressure 126/87 01/20/18 06:33 O2 Sat by Pulse Oximetry (%) 99 01/20/18 00:42 GENERAL: The patient is awake, alert, and fully oriented, in no acute distress. HEAD: Normal with no signs of trauma. EYES: PERRL, extraocular movements intact, sclera anicteric, conjunctiva clear. No ptosis. ENT: Ears normal, nares patent, oropharynx clear without exudates, moist mucous membranes. NECK: Trachea midline, full range of motion, supple. LUNGS: Breath sounds equal, clear to auscultation bilaterally, no wheezes, no crackles, no accessory muscle use. HEART: Regular rate and rhythm, S1, S2 without murmur, rub or gallop. ABDOMEN: Soft, nontender, nondistended, normoactive bowel sounds, no guarding, no rebound, no hepatosplenomegaly, no masses. EXTREMITIES: 2+ pulses, warm, well-perfused, no edema. NEUROLOGICAL: Cranial nerves II through XII grossly intact. Normal speech, gait not observed. PSYCH: Normal mood, normal affect. SKIN: Warm, dry, normal turgor, no rashes or lesions noted CBCD WBC 5.7 K/mm3 (4.0-10.0) 01/20/18 05:30 RBC 3.49 M/mm3 (3.60-5.2) L 01/20/18 05:30 Hgb 11.8 GM/dL (10.7-15.3) 01/20/18 05:30 Hct 34.0 % (32.4-45.2) 01/20/18 05:30 MCV 97.5 fl (80-96) H 01/20/18 05:30 MCHC 34.5 g/dl (32.0-36.0) 01/20/18 05:30 RDW 13.7 % (11.6-15.6) 01/20/18 05:30 Plt Count 215 K/MM3 (134-434) D 01/20/18 05:30 MPV 8.1 fl (7.5-11.1) 01/20/18 05:30 CMP Sodium 146 mmol/L (136-145) H 01/20/18 05:30 Potassium 4.1 mmol/L (3.5-5.1) 01/20/18 05:30 Chloride 111 mmol/L (98-107) H 01/20/18 05:30 Carbon Dioxide 28 mmol/L (21-32) 01/20/18 05:30 Anion Gap 7 (8-16) L 01/20/18 05:30 BUN 20 mg/dL (7-18) H 01/20/18 05:30 Creatinine 0.7 mg/dL (0.55-1.02) 01/20/18 05:30 Creat Clearance w eGFR > 60 (>60) 01/20/18 05:30 Random Glucose 92 mg/dL (74-106) 01/20/18 05:30 Calcium 8.4 mg/dL (8.5-10.1) L 01/20/18 05:30 Total Bilirubin 0.4 mg/dL (0.2-1.0) 01/20/18 05:30 AST 17 U/L (15-37) 01/20/18 05:30 ALT 24 U/L (12-78) 01/20/18 05:30 Alkaline Phosphatase 68 U/L (45-117) D 01/20/18 05:30 Total Protein 6.2 g/dl (6.4-8.2) L 01/20/18 05:30 Albumin 3.2 g/dl (3.4-5.0) L 01/20/18 05:30 CARDIAC ENZYMES Creatine Kinase 141 IU/L (26-192) 01/19/18 17:45 Troponin I < 0.02 ng/ml (0.00-0.05) 01/20/18 03:00 Current Medications Generic Name Dose Route Start Last Admin Trade Name Freq PRN Reason Stop Dose Admin Acetaminophen 650 mg 01/20/18 01:52 Tylenol - PO Q6H PRN Fever Or Pain Enoxaparin Sodium 40 mg 01/20/18 10:00 Lovenox - SQ DAILY [facility] Home Medications Medication Instructions Recorded Amlodipine Besylate 5 mg PO DAILY 11/19/16 Clopidogrel Bisulfate [Plavix -] 75 mg PO DAILY 11/19/16 Ranitidine HCl [Zantac] 150 mg PO DAILY 01/20/18 Simvastatin 20 mg PO HS 01/20/18 Assessment/plan: 1. Chest pain - Pain is atypical bbut will be admitted to telemetry to rule out ACS. Initial troponin is normal. CXR does not show any new changes and EKG is remarkable for nonspecific T wave changes. ECHO and cardiology consult. Once ACS is ruled out, will get C-spine MRI to rule out cervical radiculopathy. Will strive to get records from her PCP to ascertain extent of prior cardic workup. 2. Lovenox 40 mg SQ q 24 hours. 3. Advance directives - Full code
[2018-01-20] MEDS ORDERED: ENOXAPARIN NA (PORCINE) 40 MG/0.4 ML DISP.SYRIN SQ SCH (10:00)
--- NOTE | 2018-01-20 12:12 | CON.CARD ---
Consult Consult Specialty:: cardiology Referred by:: Irasema Mcmahon Reason for Consultation:: Neck pain - History of Present Illness Chief Complaint: Neck pain - History Source History Provided By: Patient, Family Member Limitations to Obtaining History: No Limitations - Past Medical History Cardio/Vascular: Yes: CAD, HTN ...: No - Alcohol/Substance Use Hx Alcohol Use: No - Smoking History Smoking history: Never smoked Have you smoked in the past 12 months: No Home Medications - Allergies Allergies/Adverse Reactions: Allergies Allergy/AdvReac Type Severity Reaction Status Date / Time No Known Allergies Allergy Verified 01/19/18 13:42 - Home Medications Home Medications: Ambulatory Orders Amlodipine Besylate 5 mg PO DAILY 11/19/16 Clopidogrel Bisulfate [Plavix -] 75 mg PO DAILY 11/19/16 Ranitidine HCl [Zantac] 150 mg PO DAILY 01/20/18 Simvastatin 20 mg PO HS 01/20/18 Review of Systems - Review of Systems Constitutional: reports: No Symptoms Eyes: reports: No Symptoms Neck: reports: Decreased ROM, Pain on Movement Cardiovascular: reports: No Symptoms Respiratory: reports: No Symptoms Gastrointestinal: reports: No Symptoms Genitourinary: reports: No Symptoms Breasts: reports: No Symptoms Reported Musculoskeletal: reports: Other (Neck pain) Integumentary: reports: No Symptoms Neurological: reports: No Symptoms Endocrine: reports: No Symptoms Hematology/Lymphatic: reports: No Symptoms Psychiatric: reports: No Symptoms Vital Signs: Vital Signs Temperature 97.7 F 01/20/18 06:33 Pulse Rate 93 H 01/20/18 06:33 Respiratory Rate 18 01/20/18 06:33 Blood Pressure 126/87 01/20/18 06:33 O2 Sat by Pulse Oximetry (%) 99 01/20/18 00:42 Constitutional: Yes: Well Nourished, No Distress, Calm Eyes: Yes: WNL, Conjunctiva Clear, EOM Intact HENT: Yes: WNL Neck: Yes: Supple, Trachea Midline, Tenderness Respiratory: Yes: WNL, Regular, CTA Bilaterally Gastrointestinal: Yes: WNL, Normal Bowel Sounds, Soft Renal/: Yes: WNL Cardiovascular: Yes: WNL, Regular Rate and Rhythm JVD: No Carotid Bruit: No PMI: Non-Displaced Heart Sounds: Yes: S1, S2 Murmur: Yes: Systolic Murmur, Grade 2 Musculoskeletal: Yes: Other (Neck pain) Extremities: Yes: WNL Edema: No Peripheral Pulses WNL: Yes Integumentary: Yes: WNL Neurological: Yes: WNL ...Motor Strength: WNL - Other Data Labs, Other Data: CBC, BMP 01/20/18 05:30 01/20/18 05:30 INR, PTT INR 1.04 (0.83-1.09) 01/19/18 17:45 Troponin, BNP 01/19/18 01/20/18 01/20/18 17:45 03:00 05:30 Troponin I < 0.02 < 0.02 0.02 01/20/18 08:00 Troponin I Cancelled Troponin, BNP 01/19/18 01/20/18 01/20/18 17:45 03:00 05:30 Troponin I < 0.02 < 0.02 0.02 01/20/18 08:00 Troponin I Cancelled Assessment/Plan 82-year-old female with a history of hypertension, coronary artery disease, obstructive sleep apnea, GERD, now admitted with musculoskeletal neck pains. The patient is in sinus rhythm. There are no acute ECG changes. No clinically significant findings on telemetry so far. There is no evidence of ischemia nor acute coronary syndrome. There is no need for further cardiac workup at this point. May stop telemetry. Please do not hesitate to call us PRN.
[2018-01-20 15:07] VITALS: BP 133/79; PULSE 91; TEMP 99.2
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
--- NOTE | 2018-01-21 08:54 | EKG ---
Test Reason : Blood Pressure : / mmHG Vent. Rate : 094 BPM Atrial Rate : 094 BPM P-R Int : 182 ms QRS Dur : 092 ms QT Int : 366 ms P-R-T Axes : 029 007 167 degrees QTc Int : 457 ms NORMAL SINUS RHYTHM MINIMAL VOLTAGE CRITERIA FOR LVH, MAY BE NORMAL VARIANT T WAVE ABNORMALITY, CONSIDER LATERAL ISCHEMIA ABNORMAL ECG WHEN COMPARED WITH ECG OF 19-NOV-2016 10:31, NO SIGNIFICANT CHANGE WAS FOUND Confirmed by CECILIA FISHMAN, PRIYA ([id number]) on 01/21/2018 8:54:33 AM Referred By: Confirmed By:PRIYA BROOKS MD
== END 2018-01-20 17:38 | disposition home or self-care (01) ==
LOC: JER 13:31 → JERBED 20:28 → J4S 01-20 00:39
PROVIDERS: ADMIT Internal Medicine; ATTEND Internal Medicine
PROC: 3E013GC Introduction of Other Therapeutic Substance into Subcutaneous Tissue, Percutaneous Approach (ICD-10-PCS; principal; 2018-01-19)
DX: R07.9 Chest pain, unspecified (principal); I10 Essential (primary) hypertension; E78.5 Hyperlipidemia, unspecified; I25.10 Atherosclerotic heart disease of native coronary artery without angina pectoris; K21.9 Gastro-esophageal reflux disease without esophagitis; G47.33 Obstructive sleep apnea (adult) (pediatric); Z99.89 Dependence on other enabling machines and devices
CPT/HCPCS: 36415; 70360-TC-FY; 71045-TC-FY; 73030-TC-LT-FY; 80053; 81003; 81015; 82550; 83690; 83735; 84100; 84484; 85025; 85610; 86850; 86900; 86901; 87086; 93005; 93010; 99285-25; G0378

== ENCOUNTER 2019-12-16 13:46 | Emergency (ER) | payer OTHER ==
--- NOTE | 2019-12-16 13:50 | PDOC ---
Rapid Medical Evaluation Time Seen by Provider: 12/16/19 13:48 Medical Evaluation: Allergies Allergy/AdvReac Type Severity Reaction Status Date / Time No Known Allergies Allergy Verified 01/19/18 13:42 12/16/19 13:49 I have performed a brief in-person evaluation of this patient. The patient presents with a chief complaint of:chest pain and ? fever. Covid + in 10/29. H/o HTN and HLD Pertinent physical exam findings:stable, NAD I have ordered the following:ekg/cxr/labs The patient will proceed to the ED for further evaluation. Discharge Disposition - Diagnosis Chest pain Qualifiers: Chest pain type: unspecified Qualified Code(s): R07.9 - Chest pain, unspecified - Referrals - Patient Instructions - Post Discharge Activity
[2019-12-16 13:52] VITALS: TEMP 98.8; BMI 27.4
[2019-12-16] MEDS ORDERED: ACETAMINOPHEN 325 MG TABLET (FP) PO ONE (14:48)
--- NOTE | 2019-12-16 14:48 | PDOC ---
History of Present Illness - General Chief Complaint: Chest Pain Stated Complaint: CHEST PAIN Time Seen by Provider: 12/16/19 13:48 - History of Present Illness Initial Comments: 84 yo female coming in with left sided chest pain for the past two weeks. Pt only speaks turkmen so most of the history was provided by daughter. Pt explains that two weeks ago pt had some swelling and erythema under left breast. Pt daughter explains that the area was getting worse and on Monday she spiked a fever of 104 and was given ibuprofen. Pt explains that pain got too high so decided to come in. Pain is on on left sternal area and radiates around left breast. Pt explains pain is 5/10, worsening, and can go up to 9/10. Pt explains nothing in particular makes pain better but ibuprophen made pain better. Pt denies any trauma to the area, new dyspnea with exertion, any N/V, swelling or any diaphoresis. PMH: CAD HTN Heart Failure PCP: Ciara Maxwell NP PSH: Cholecystectomy (1990) Allergies: NKA Social Hx: denies smoking, drugs, or alcohol Pt lives with son and daughter Past History - Medical History Allergies/Adverse Reactions: Allergies Allergy/AdvReac Type Severity Reaction Status Date / Time No Known Allergies Allergy Verified 01/19/18 13:42 Home Medications: Ambulatory Orders Amlodipine Besylate 5 mg PO DAILY 11/19/16 Clopidogrel Bisulfate [Plavix -] 75 mg PO DAILY 11/19/16 Acetaminophen [Tylenol .Regular Strength -] 650 mg PO Q6H PRN tablet 01/20/18 Cyclobenzaprine HCl [Flexeril 10 mg] 10 mg PO HS PRN #20 tablet 01/20/18 Ranitidine HCl [Zantac] 150 mg PO DAILY 01/20/18 Simvastatin 20 mg PO HS 01/20/18 Anemia: No Asthma: No Cancer: No Cardiac Disorders: Yes (CAD) CVA: No COPD: No CHF: No Dementia: No Diabetes: No GI Disorders: Yes (acid reflux) Disorders: No HTN: Yes Hypercholesterolemia: Yes Liver Disease: No Seizures: No Thyroid Disease: No - Surgical History Abdominal Surgery: Yes (gallbladder) Appendectomy: No Cardiac Surgery: No Cholecystectomy: Yes Lung Surgery: No Neurologic Surgery: No Orthopedic Surgery: No - Psycho-Social/Smoking History Smoking History: Never smoked Have you smoked in the past 12 months: No - Substance Abuse Hx (Audit-C & DAST Scrn) How often the patient has a drink containing alcohol: Never Score: In Men: 4 or > Positive; In Women: 3 or > Positive: 0 Screen Result (Pos requires Nsg. Audit-10AR): Negative In the last yr the pt used illegal drug/Rx for NonMed reason: No Score: Yes response is considered Positive: 0 Screen Result (Positive result requires Nsg. DAST-10): Negative Review of Systems - Review of Systems Comments:: CONSTITUTIONAL: Absent: Denies current fever, chills, diaphoresis, generalized weakness, malaise, loss of appetite HEENT: Absent: rhinorrhea, nasal congestion, throat pain, throat swelling, Cardiovascular Present: Chest Pain Denies SOB, worsening dyspnea with exertion RESPIRATORY: Absent: cough, shortness of breath, worsening dyspnea with exertion, orthopnea, wheezing, stridor, hemoptysis GASTROINTESTINAL: Absent: abdominal pain, abdominal distension, nausea, vomiting, diarrhea, constipation, melena, hematochezia GENITOURINARY: Absent: dysuria, frequency, urgency MUSCULOSKELETAL: Absent: myalgia, arthralgia, joint swelling SKIN: Positive: Swelling and erythema under left breast NEUROLOGIC: Absent: headache, focal weakness or paresthesias, dizziness, unsteady gait, seizure, mental status changes, bladder or bowel incontinence Psych: Denies depression or any suicidal idealation *Physical Exam - Vital Signs Last Vital Signs Temp Pulse Resp BP Pulse Ox 98.8 F 86 19 115/63 100 12/16/19 13:49 12/16/19 13:49 12/16/19 13:49 12/16/19 13:49 12/16/19 13:49 - Physical Exam General: Pt lying in bed with moderate distress HEENT: Normocephalic atraumatic. ZURI, EOMI, Neck: Negative JVD Chest: tenderness to palpation on sternum and pain along bottom of left breast. Cardiac: Normal S1 S2 no murmurs, rubs, or gallops Resp: CTA bilaterally no wheezes, rhales or rhonchi Ext: 2+ pulses bilaterally in upper and lower extremities. Mild trace edema on bilateral lower ext. Left hand deformity Neuro: CN2-12 grossly intact Abd: Soft nondistended; pt has moderate tenderness to palpation on epigastric area PSYCHIATRIC: Cooperative. Good eye contact. Appropriate mood and affect. Heart Score/ECG Review - ECG Impressions Comment:: 12/16/19 16:19 Normal Sinus rhythm Regular rate @74 bpm Normal [place] Normal GA and QRS interval Partial RBBB T wave inversion of I, AVL and flattening of II and AVF EKG- done 12/16/2019 14;54 12/16/19 18:39 EKG done 12/16/2019 18:20 Normal sinus rhythm Regular rate @64 bpm Normal axis Normal GA Prolonged QT with 484 Partial RBBB and LVH Normal ST segmant (no t wave inversion in I AVL) ED Treatment Course - LABORATORY CBC & Chemistry Diagram: 12/16/19 14:23 12/16/19 20:05 Medical Decision Making - Medical Decision Making 12/16/19 15:41 84 yo female with PMH of HTN, CAD, COVID (September) and heart failure presents to ED with chest pain for the past two weeks that has worsened in the last two days. Pts daughter explains that there was some swelling for past two weeks that has been worsening around the breast and that Monday pt spiked a fever. Pt explains fever has gone away, but pain has been worsening so came in On physical exam no erythema or induration but pain reproducible with palpation. Pt Pt had CXR, EKG, CBC, CMP, and cardiac enzymes to r/o ACS or any cardiac pathology due to risk factors. Pt most likely diagnosis of prior cellulitis/ chostocondritis will reassess labs and if negative will treat for costochondritis and discharge. 12/16/19 16:01 Pt EKG showed some new T wave inversions and CMP showed increase in Creatinine showing increased creatinine, and trop is negaive. Will give liter of fluid and repeat troponin and bmp 12/16/19 21:34 Potassium came back elevated. Creatinine went down and troponin came back negative. Redid BMP K came down. Pt feels beter and is ready to go home. Gave instructions to pt to return to ED if concerning chest pain sxs returned. Told to follow up with maintenance helper utility engineer and PCP within one week. Discharge - Discharge Information Problems reviewed: Yes Clinical Impression/Diagnosis: Chest pain Qualifiers: Chest pain type: unspecified Qualified Code(s): R07.9 - Chest pain, unspecified Condition: Improved Disposition: HOME - Follow up/Referral Referrals: Ciara Maxwell NP [Primary Care Provider] - Pacheco Valdovinos MD [Staff Physician] - - Patient Discharge Instructions Patient Printed Discharge Instructions: DI for Chest Pain Additional Instructions: Linsey Renner came into the ED because she had worsening left sided chest pain that has been going on for the last two weeks. This was most likely due to costochondritis. In the ED you were tested to rule out any serious cardiac complications. An EKG, Chest Xray, CBC, CMP, and troponin were all done. The CMP showed an acute kidney injury so we decided to give you one liter of fluid which lowered your kidney levels appropriately. We also serially checked your troponin and EKG and they were normal ruling out an acute coronary syndrome. Please follow up with pcp and maintenance helper utility engineer (referral provided here: Dr. Valdovinos) within one week. For costochondritis symptoms please continue taking 325mg of tylenol every 6-8 or 400 mg ibuprofen every 4-6hrs. Please return to the ED If you have any recurring: - Chest pain with exertion - Shortness of breath - Chest pain at rest - Chest pain associated with nausea, vomitting, or diaphoresis Linsey Hawthorne entr al servicio de urgencias porque haba empeorado el dolor en el pecho del lado eddie que haba estado ocurriendo edgar las ltimas dos semanas. [place] probablemente se cecilio a la costocondritis. En el servicio de urgencias, se le realiz alanis prueba para descartar complicaciones cardacas graves. Se realizaron un electrocardiograma, radiografa de trax, CBC, CMP y troponina. El CMP mostr alanis lesin renal aguda, por lo que decidimos darle un litro de lquido que redujo robinson niveles de rin de manera adecuada. Tambin verificamos en serie paz troponina y EKG y edin normales descartando un sndrome coronario sharita. Lionel un seguimiento con el PCP y el cardilogo (se proporciona alanis referencia aqu: Dr. Valdovinos) dentro de alanis semana. Para los sntomas de costocondritis, contine tomando 325 mg de tylenol cada 6-8 o 400 mg de ibuprofeno cada 4-6 horas. Regrese al ED si tiene alguna recurrente: Dolor en el pecho con esfuerzo. - Dificultad para respirar - Dolor en el pecho en reposo - Dolor en el pecho asociado con nuseas, vmitos o diaforesis. - Post Discharge Activity
--- NOTE | 2019-12-16 15:08 | PDOC ---
Attending Attestation - Resident Resident Name: JaycedamonLoco hastings - ED Attending Attestation I have performed the following: I have examined & evaluated the patient, The case was reviewed & discussed with the resident, I agree w/resident's findings & plan - HPI HPI: 12/16/19 15:07 84 yo female with PMHx hypertension, coronary artery disease, obstructive sleep apnea, GERD coming in with left sided chest pain for the past two weeks. Pt only speaks kazakh so most of the history was provided by daughter. Pt explains that two weeks ago pt had some swelling and erythema under left breast. Pt daughter explains that the area was getting worse and on Monday she spiked a fever of 104 and was given ibuprofen. Pt explains that pain got too high so decided to come in. Pain is on on left sternal area and radiates around left breast. Pt explains pain is 5/10 but worsening. Pt denies any trauma to the area, new dyspnea with exertion, any N/V, swelling or any diaphoresis. PCP: Ciara Maxwell NP PSH: Cholecystectomy (1990) Allergies: NKA Social Hx: denies smoking, drugs, or alcohol Pt lives with son and daughter 12/16/19 16:07 12/16/19 16:08 - Physicial Exam PE: 12/16/19 15:07 General: Well appearing, awake and alert, NAD. HEENT: NCAT, PERRL, EOMI, clear conjunctiva, anicteric, moist mucous membranes, clear oropharynx, no oral lesions.. Neck: neck supple, FROM Resp: CTAB, normal and even respirations, no respiratory distress chest: left anterior chest wall TTP point tenderness; no overlying skin changes, no crepitus, no mass CVS: RRR, no murmurs, 2+ peripheral pulses throughout, no peripheral edema Abdomen: soft, right sided cholecystectomy scar. obese, nontender, no rebound or guarding. No CVAT. Back: nontender, normal inspection and ROM] MSK: no edema, PHELPS x4, ROM intact. No clubbing or cyanosis. normal bulk and tone. Extremities: no calf tenderness, no edema Neuro: alert, oriented appropriately; no focal neurologic deficits Skin: warm and well perfused, cap refill <2 sec, normal color 12/16/19 16:05 12/16/19 16:07 - Medical Decision Making 12/16/19 15:08 Vital Signs Temp Pulse Resp BP Pulse Ox 98.8 F 86 19 115/63 100 12/16/19 13:49 12/16/19 13:49 12/16/19 13:49 12/16/19 13:49 12/16/19 13:49 DDx chest pain: ACS, coronary vasospasm, NSTEMI, arrhythmia, unstable angina, PE, dissection, PUD, esophageal spasm, GERD, gastritis, costochondritis, pneumonia, pleurisy, pericarditis/myocarditis. dehydration, electrolyte/metabolic derangements. Considered but clinically doubt based on HPI and PE: Low suspicion for pulmonary embolism or dissection. Interpreted by ED Physician: CXR (1 view): no acute abnormality: no infiltrates, no edema or congestion, bones appear intact and structures normal alignment, mild cardiomegaly but similar to prior. no free air under diaphragm, no pneumothorax. No evidence of ACS, pericarditis, myocarditis, pulmonary embolism, pneumothorax, pneumonia, Zoster, or esophageal perforation. Historically not abrupt in onset, tearing or ripping, pulses symmetric, no evidence of aortic dissection. EKG normal sinus rhythm 74 bpm, no interval abnormalities, narrow QRS, ST and T wave segments and morphology normal. Nonspecific T wave abnormalities, unchanged from prior Chest pain HEART score 4 which denotes mod risk and probability for ACS chest pain free now +reproducible cp, left anterior chest wall; no overlying lesions/infection no mass most likely msk labs and lytes with initial neg trop, ECG nonischemic, nonspecific T wave abnormalities, similar to prior bedside echo wnl, normal ef on visual estimation, no pericardial fluid, RV<LV. repeat trop, basic bnp with cr/lytes, as poss hemolysis IVF > repeat labs/ekg. s/o pending reeval/ultimate dispo. 12/16/19 16:09 Heart Score/ECG Review - History History: Slightly suspicious - Electrocardiogram EKG: Non specific repolarization disturbance - Age Age: >/= 65 - Risk Factors Risk Factors Heart Score: Yes Hx Hypertension, Yes Hx Obesity Based on the list above the patient has:: 1-2 risk factors - Troponin Troponin: </= normal limit - Score Heart Score - Total: 4 #1 ECG reviewed & interpreted by me at: 14:55 General ECG Interpretation: Sinus Rhythm, Normal Rate Compared to previous ECG there are: No significant change 12/16/19 16:09 EKG normal sinus rhythm 74 bpm, no interval abnormalities, narrow QRS, ST and T wave segments and morphology normal. Nonspecific T wave abnormalities, unchanged from prior Discharge - Discharge Information Problems reviewed: Yes Clinical Impression/Diagnosis: Chest pain Qualifiers: Chest pain type: unspecified Qualified Code(s): R07.9 - Chest pain, unspecified Condition: Improved Disposition: HOME - Follow up/Referral Referrals: Ciara Maxwell NP [Primary Care Provider] - Pacheco Valdovinos MD [Staff Physician] - - Patient Discharge Instructions Patient Printed Discharge Instructions: DI for Chest Pain Additional Instructions: Linsey Renner came into the ED because she had worsening left sided chest pain that has been going on for the last two weeks. This was most likely due to costochondritis. In the ED you were tested to rule out any serious cardiac complications. An EKG, Chest Xray, CBC, CMP, and troponin were all done. The CMP showed an acute kidney injury so we decided to give you one liter of fluid which lowered your kidney levels appropriately. We also serially checked your troponin and EKG and they were normal ruling out an acute coronary syndrome. Please follow up with pcp and [facility] (referral provided here: Dr. Valdovinos) within one week. For costochondritis symptoms please continue taking 325mg of tylenol every 6-8 or 400 mg ibuprofen every 4-6hrs. Please return to the ED If you have any recurring: - Chest pain with exertion - Shortness of breath - Chest pain at rest - Chest pain associated with nausea, vomitting, or diaphoresis Linsey Hawthorne entr al servicio de urgencias porque haba empeorado el dolor en el pecho del lado eddie que haba estado ocurriendo edgar las ltimas dos semanas. [place] probablemente se cecilio a la costocondritis. En el servicio de urgencias, se le realiz alanis prueba para descartar complicaciones cardacas graves. Se realizaron un electrocardiograma, radiografa de trax, CBC, CMP y troponina. El CMP mostr alanis lesin renal aguda, por lo que decidimos darle un litro de lquido que redujo robinson niveles de rin de manera adecuada. Tambin verificamos en serie paz troponina y EKG y edin normales descartando un sndrome coronario sharita. Lionel un seguimiento con el PCP y el cardilogo (se proporciona alanis referencia aqu: Dr. Valdovinos) dentro de alanis semana. Para los sntomas de costocondritis, contine tomando 325 mg de tylenol cada 6-8 o 400 mg de ibuprofeno cada 4-6 horas. Regrese al ED si tiene alguna recurrente: Dolor en el pecho con esfuerzo. - Dificultad para respirar - Dolor en el pecho en reposo - Dolor en el pecho asociado con nuseas, vmitos o diaforesis. - Post Discharge Activity
[2019-12-16 15:10] LABS: BASO % 0.6 % (0-2.0); EOS % 1.3 % (0-4.5); HEMATOCRIT 41.5 % (32.4-45.2); HEMOGLOBIN 13.8 GM/dL (10.7-15.3); MCH 33.9 pg (25.7-33.7); MCHC 33.3 g/dl (32.0-36.0); MEAN CELL VOLUME 101.9 fl (80-96); MEAN PLT VOLUME 9.1 fl (7.5-11.1); MONO % 10.8 % (3.8-10.2); NEUT % 51.3 % (42.8-82.8); PLATELET COUNT 265 K/MM3 (134-434); RBC 4.07 M/mm3 (3.60-5.2); RDW 15.2 % (11.6-15.6); WHITE BLOOD COUNT 6.4 K/mm3 (4.0-10.0)
[2019-12-16 15:38] LABS: ALBUMIN 3.8 g/dl (3.4-5.0); ALK PHOS 80 U/L (45-117); ANION GAP 7 MMOL/L (8-16); BILIRUBIN,TOTAL 0.5 mg/dL (0.2-1); BLOOD UREA NITROGEN 17.1 mg/dL (7-18); CALCIUM 8.8 mg/dL (8.5-10.1); CHLORIDE 102 mmol/L (98-107); CO2 29 mmol/L (21-32); CREATININE 1.6 mg/dL (0.55-1.3); GLUCOSE,RANDOM 122 mg/dL (74-106); POTASSIUM 5.3 mmol/L (3.5-5.1); SGOT/AST 46 U/L (15-37); SGPT/ALT 36 U/L (13-61); SODIUM 138 mmol/L (136-145); TOT PROT 8.2 g/dl (6.4-8.2)
[2019-12-16] MEDS ORDERED: SODIUM CHLORIDE 0.9% 500 ML INFUS.BAG IV ONE (15:55)
--- NOTE | 2019-12-16 15:55 | EKG ---
Test Reason : Blood Pressure : / mmHG Vent. Rate : 075 BPM Atrial Rate : 075 BPM P-R Int : 168 ms QRS Dur : 100 ms QT Int : 422 ms P-R-T Axes : 038 -02 127 degrees QTc Int : 471 ms SINUS RHYTHM WITH PREMATURE SUPRAVENTRICULAR COMPLEXES VOLTAGE CRITERIA FOR LEFT VENTRICULAR HYPERTROPHY CANNOT RULE OUT SEPTAL INFARCT , AGE UNDETERMINED T WAVE ABNORMALITY, CONSIDER LATERAL ISCHEMIA ABNORMAL ECG WHEN COMPARED WITH ECG OF 20-JAN-2018 02:36, Confirmed by Macie Sykes ([id number]) on 12/16/2019 3:55:09 PM Referred By: Confirmed By:Macie Sykes
[2019-12-16] MEDS ORDERED: FUROSEMIDE 40 MG/4 ML INJECTABLE VIAL ONE (17:06)
[2019-12-16] MEDS ORDERED: ACETAMINOPHEN INJECTION 100 ML IVPB ONE (17:06)
[2019-12-16] MEDS ORDERED: VANCOMYCIN 1 GRAM (PRE-DOCKED) 1,000 MG/250 ML BAG IVPB ONE (17:06)
[2019-12-16 19:17] LABS: CALCIUM 8.3 mg/dL (8.5-10.1); CHLORIDE 107 mmol/L (98-107); CO2 26 mmol/L (21-32); CREATININE 1.5 mg/dL (0.55-1.3); GLUCOSE,RANDOM 95 mg/dL (74-106); SODIUM 139 mmol/L (136-145)
[2019-12-16 19:32] LABS: ANION GAP 7 MMOL/L (8-16)
[2019-12-16 19:34] LABS: POTASSIUM 7.6 mmol/L (3.5-5.1)
[2019-12-16 21:05] LABS: ANION GAP 9 MMOL/L (8-16); BLOOD UREA NITROGEN 13.8 mg/dL (7-18); CHLORIDE 117 mmol/L (98-107); CO2 22 mmol/L (21-32); GLUCOSE,RANDOM 93 mg/dL (74-106); POTASSIUM 3.7 mmol/L (3.5-5.1); SODIUM 147 mmol/L (136-145)
[2019-12-16 21:12] LABS: CALCIUM 6.7 mg/dL (8.5-10.1)
[2019-12-16 21:40] VITALS: BP 122/72; PULSE 88
--- NOTE | 2020-01-27 12:48 | EKG ---
Test Reason : Blood Pressure : / mmHG Vent. Rate : 064 BPM Atrial Rate : 064 BPM P-R Int : 174 ms QRS Dur : 122 ms QT Int : 484 ms P-R-T Axes : 052 026 049 degrees QTc Int : 499 ms NORMAL SINUS RHYTHM NON-SPECIFIC INTRA-VENTRICULAR CONDUCTION DELAY BORDERLINE ECG WHEN COMPARED WITH ECG OF 16-DEC-2019 14:54, PREMATURE SUPRAVENTRICULAR COMPLEXES ARE NO LONGER PRESENT NONSPECIFIC T WAVE ABNORMALITY, IMPROVED IN INFERIOR LEADS Confirmed by MD Lira Daniel ([id number]) on 12/17/2019 12:05:09 PM Also confirmed by MD Lira Daniel ([id number]), pictures editor JH LANDIN ([id number]) on 01/27/2020 12:47:27 PM Referred By: Confirmed By:Jh Lira MD
== END 2019-12-16 21:37 | disposition home or self-care (01) ==
LOC: JER 13:46
DX: R07.9 Chest pain, unspecified (principal)
CPT/HCPCS: 36415; 71045-TC-FY; 80048; 80053; 82550; 82553; 84484; 85025; 93005; 93010; 99285-25

== ENCOUNTER 2020-02-21 04:57 | Day surgery (SDC) | payer OTHER ==
[2020-02-20 11:45] VITALS: BMI 27.4
[~2020-02-21 04:57] MED LIST: BUPIVACAINE HCL/PF 0.75% 10 ML VIAL NR ONE; IOHEXOL 180 MG/1 ML ML IJ ONE; LIDOCAINE HCL 1% PRESERVATIVE FREE - 30ML VIAL NR ONE
[2020-02-21] MEDS ORDERED: LIDOCAINE HCL/PF 1% SDV 5ML VIAL ONE (07:38)
[2020-02-21] MEDS ORDERED: BUPIVACAINE HCL/PF 0.75% 10 ML VIAL ONE (07:38)
--- NOTE | 2020-02-21 09:31 | HP ---
Admitting History and Physical - Admission Chief Complaint: Low back pain History of Present Illness: The patient complains of low back pain. History Source: Patient - Past Medical History Cardiovascular: Yes: CAD, HTN - Smoking History Smoking history: Never smoked Have you smoked in the past 12 months: No - Alcohol/Substance Use Hx Alcohol Use: No Home Medications - Allergies Allergies/Adverse Reactions: Allergies Allergy/AdvReac Type Severity Reaction Status Date / Time No Known Allergies Allergy Verified 02/21/20 08:31 - Home Medications Home Medications: Ambulatory Orders Amlodipine Besylate 5 mg PO DAILY 11/19/16 Ranitidine HCl [Zantac] 150 mg PO DAILY 01/20/18 Simvastatin 20 mg PO HS 01/20/18 Review of Systems - Review of Systems Constitutional: reports: No Symptoms Eyes: reports: No Symptoms HENT: reports: No Symptoms Neck: reports: No Symptoms Cardiovascular: reports: No Symptoms Respiratory: reports: No Symptoms Gastrointestinal: reports: No Symptoms Genitourinary: reports: No Symptoms Musculoskeletal: reports: Back Pain Neurological: reports: No Symptoms Endocrine: reports: No Symptoms Hematology/Lymphatic: reports: No Symptoms Psychiatric: reports: No Symptoms Physical Examination Vital Signs: Vital Signs Temperature 98.4 F 02/21/20 08:29 Pulse Rate 74 02/21/20 08:29 Respiratory Rate 20 02/21/20 08:29 Blood Pressure 146/61 02/21/20 08:29 O2 Sat by Pulse Oximetry (%) 97 02/21/20 08:29 Constitutional: Yes: No Distress, Calm Eyes: Yes: Conjunctiva Clear, EOM Intact HENT: Yes: Atraumatic, Normocephalic Neck: Yes: Trachea Midline Cardiovascular: Yes: Regular Rate and Rhythm Respiratory: Yes: Regular, CTA Bilaterally Gastrointestinal: Yes: WNL Musculoskeletal: Yes: Back Pain Extremities: Yes: WNL Neurological: Yes: WNL ...Motor Strength: WNL Imaging - Results X-ray: Report Reviewed, Image Reviewed Assessment/Plan The patients pain is secondary to lumabr spondylosis. I will perform right and left L3 L4 L5 medial branch blocks bilateral.
[2020-02-21] MEDS ORDERED: LIDOCAINE HCL 1% PRESERVATIVE FREE - 30ML VIAL NR ONE ×2 (09:52)
[2020-02-21] MEDS ORDERED: BUPIVACAINE HCL/PF 0.75% 10 ML VIAL NR ONE ×2 (09:52)
[2020-02-21] MEDS ORDERED: IOHEXOL 180 MG/1 ML ML IJ ONE (09:52)
[2020-02-21 11:27] VITALS: BP 113/62; PULSE 66; TEMP 97.6
--- NOTE | 2020-02-26 09:54 | PROC ---
Procedure Note Procedure: Pre procedure Diagnosis: Lumbar Spondylosis Post Procedure Diagnosis: same Anesthesia: Local Procedure Performed: Right and Left L3 L4 L5 Medial Branch Blocks under Fluoroscopic Guidance Procedure: After the risks and benefits were explained, informed consent was obtained. The patient was then taken to the procedure room and positioned prone on the procedure table. Time out was performed. The region overlying the appropriate vertebral bodies was identified using fluoroscopy. The skin was prepped and draped in the usual sterile fashion. The skin and soft tissues were anesthetized using 1% lidocaine. Using fluoroscopic guidance, 22 gauge 3.5 inch spinal needles were then introduced to the juncture of the superior articular processes and the transverse processes of the RIGHT L3, L4, and L5 medial branches are located. Omnipaque 180 confirmed appropriate needle placement. There was no epidural or vascular flow observed. .75% bupivacaine was drawn into a syringe. 0.5cc of this solution was then injected at each level. The same procedure was repeated on the LEFT side at the same levels. The patient tolerated the procedure well and there were no complications. The patient was taken to the post procedure recovery area in good condition. Vital signs remained stable before, and after the procedure. The patient was given oral follow-up instructions.The patient was givena follow up appointment with me in the near future. Terry Loyola D.O.
== END 2020-02-21 11:29 | disposition home or self-care (01) ==
LOC: JASU-SURG 04:57
PROVIDERS: ATTEND Pain Medicine Pain Medicine
PROC: 3E0T33Z Introduction of Anti-inflammatory into Peripheral Nerves and Plexi, Percutaneous Approach (ICD-10-PCS; 2020-02-21)
PROC: 3E0T3BZ Introduction of Anesthetic Agent into Peripheral Nerves and Plexi, Percutaneous Approach (ICD-10-PCS; principal; 2020-02-21 09:30)
DX: M47.896 Other spondylosis, lumbar region (principal); M54.5 Low back pain
CPT/HCPCS: 76000-TC-FY

== ENCOUNTER 2020-08-21 04:19 | Day surgery (SDC) | payer OTHER ==
[2020-08-21 13:03] VITALS: BMI 31.8
[2020-08-21] MEDS ORDERED: DEXAMETHASONE SOD PHOSPHATE/PF 10 MG/ML SDV ONE (14:36)
[2020-08-21] MEDS ORDERED: LIDOCAINE HCL/PF 1% SDV 5ML VIAL ONE (14:36)
[2020-08-21 15:56] VITALS: BP 184/79; PULSE 62; TEMP 97.8
== END 2020-08-21 15:59 | disposition home or self-care (01) ==
LOC: JASU-SURG 04:19
PROVIDERS: ATTEND Pain Medicine Pain Medicine
DX: Z53.8 Procedure and treatment not carried out for other reasons (principal)

== ENCOUNTER 2020-08-21 16:01 | Emergency (ER) | payer OTHER ==
[2020-08-21 16:05] VITALS: BP 179/75; PULSE 65; TEMP 98.6; BMI 32.0
== END 2020-08-21 17:39 | disposition home or self-care (01) ==
LOC: JER 16:01
DX: I10 Essential (primary) hypertension (principal)
CPT/HCPCS: 99284-25

== ENCOUNTER 2020-08-28 05:20 | Day surgery (SDC) | payer OTHER ==
[2020-08-27 11:50] VITALS: BMI 35.5
[2020-08-28] MEDS ORDERED: LIDOCAINE 1% P/F 10 MG/ML VIAL SNB ONE (11:42)
[2020-08-28] MEDS ORDERED: IOHEXOL 180 MG/1 ML ML IJ ONE (11:42)
[2020-08-28] MEDS ORDERED: BUPIVACAINE HCL/PF 0.75% 10 ML VIAL NR ONE (11:42)
[2020-08-28 12:18] VITALS: BP 129/70; PULSE 72; TEMP 98
== END 2020-08-28 12:48 | disposition home or self-care (01) ==
LOC: JASU-SURG 05:20
PROVIDERS: ATTEND Pain Medicine Pain Medicine
PROC: BR16YZZ Fluoroscopy of Lumbar Facet Joint(s) using Other Contrast (ICD-10-PCS; 2020-08-28)
PROC: 3E0T3BZ Introduction of Anesthetic Agent into Peripheral Nerves and Plexi, Percutaneous Approach (ICD-10-PCS; principal; 2020-08-28 10:30)
DX: M47.816 Spondylosis without myelopathy or radiculopathy, lumbar region (principal)
CPT/HCPCS: 76000-TC-FY

== ENCOUNTER 2020-12-26 11:10 | Emergency (ER) | payer MEDICARE, OTHER ==
[2020-12-26 11:45] VITALS: BP 156/70; PULSE 68; TEMP 98; BMI 38.9
[2020-12-26] MEDS ORDERED: ACETAMINOPHEN 500 MG TABLET (FP) PO ONE (12:46)
[2020-12-26] MEDS ORDERED: predniSONE 20 MG TABLET (UD) PO ONE (12:46)
[2020-12-26] MEDS ORDERED: predniSONE 20 MG TABLET (UD) ONE (12:55)
[2020-12-26] MEDS ORDERED: ACETAMINOPHEN 500 MG TABLET (FP) ONE (12:55)
== END 2020-12-26 13:28 | disposition home or self-care (01) ==
LOC: JERFT 11:10
DX: G56.01 Carpal tunnel syndrome, right upper limb (principal)
CPT/HCPCS: 99283-25

== ENCOUNTER 2021-01-04 12:39 | Emergency (ER) | payer MEDICARE, OTHER ==
[2021-01-04 12:43] VITALS: BP 130/78; PULSE 88; TEMP 98; BMI 29.2
[2021-01-04] MEDS ORDERED: LIDOCAINE 5% TOPICAL PATCH TP ONE (13:22)
[2021-01-04] MEDS ORDERED: METHOCARBAMOL 500 MG TABLET PO ONE (13:22)
[2021-01-04] MEDS ORDERED: ACETAMINOPHEN 325 MG TABLET (FP) PO ONE (13:22)
[2021-01-04] MEDS ORDERED: KETOROLAC TROMETHAMINE 15 MG/ML VIAL IM ONE (13:22)
[2021-01-04] MEDS ORDERED: LIDOCAINE 5% TOPICAL PATCH ONE (13:31)
[2021-01-04] MEDS ORDERED: ACETAMINOPHEN 325 MG TABLET (FP) ONE (13:31)
[2021-01-04] MEDS ORDERED: KETOROLAC TROMETHAMINE 15 MG/ML VIAL ONE (13:31)
[2021-01-04] MEDS ORDERED: METHOCARBAMOL 500 MG TABLET ONE (13:31)
[2021-01-04] MEDS ORDERED: LIDOCAINE PATCH REMOVAL MC SCH (22:00)
== END 2021-01-04 14:58 | disposition home or self-care (01) ==
LOC: JER 12:39
PROC: 3E0233Z Introduction of Anti-inflammatory into Muscle, Percutaneous Approach (ICD-10-PCS; principal; 2021-01-04)
DX: M54.41 Lumbago with sciatica, right side (principal)
CPT/HCPCS: 99283-25

== ENCOUNTER 2021-01-29 04:28 | Day surgery (SDC) | payer OTHER ==
[2021-01-27 17:09] VITALS: BMI 34.0
[~2021-01-29 04:28] MED LIST changes: +DEXAMETHASONE SOD PHOSPHATE 10 MG/1 ML VIAL IVPUSH ONE; -LIDOCAINE HCL 1% PRESERVATIVE FREE - 30ML VIAL NR ONE
[2021-01-29] MEDS ORDERED: DEXAMETHASONE SOD PHOSPHATE 10 MG/1 ML VIAL ONE (07:55)
[2021-01-29] MEDS ORDERED: LIDOCAINE HCL 1% PRESERVATIVE FREE - 30ML VIAL IJ ONE (13:37)
[2021-01-29] MEDS ORDERED: LIDOCAINE HCL/PF 2% SDV 5ML VIAL INF ONE (13:39)
[2021-01-29] MEDS ORDERED: IOHEXOL 180 MG/1 ML ML IJ ONE (13:43)
[2021-01-29] MEDS ORDERED: BUPIVACAINE HCL/PF 0.75% 10 ML VIAL NR ONE (13:55)
[2021-01-29] MEDS ORDERED: DEXAMETHASONE SOD PHOSPHATE 10 MG/1 ML VIAL IVPUSH ONE (13:56)
[2021-01-29 15:10] VITALS: BP 128/67; PULSE 63; TEMP 97.8
== END 2021-01-29 14:50 | disposition home or self-care (01) ==
LOC: JASU-SURG 04:28
PROVIDERS: ATTEND Pain Medicine Pain Medicine
PROC: 3E0T3TZ Introduction of Destructive Agent into Peripheral Nerves and Plexi, Percutaneous Approach (ICD-10-PCS; principal; 2021-01-29 13:15)
PROC: BR16YZZ Fluoroscopy of Lumbar Facet Joint(s) using Other Contrast (ICD-10-PCS; 2021-01-29 13:15)
DX: M47.816 Spondylosis without myelopathy or radiculopathy, lumbar region (principal)
CPT/HCPCS: 76000-TC-FY; J1100

== ENCOUNTER 2021-04-30 04:30 | Day surgery (SDC) | payer OTHER ==
[2021-04-28 16:08] VITALS: BMI 35.5
[~2021-04-30 04:30] MED LIST changes: -BUPIVACAINE HCL/PF 0.75% 10 ML VIAL NR ONE; -DEXAMETHASONE SOD PHOSPHATE 10 MG/1 ML VIAL IVPUSH ONE; -IOHEXOL 180 MG/1 ML ML IJ ONE; +LIDOCAINE HCL 1% PRESERVATIVE FREE - 30ML VIAL IJ ONE
[2021-04-30] MEDS ORDERED: LIDOCAINE HCL 1% PRESERVATIVE FREE - 30ML VIAL IJ ONE ×2 (13:42)
[2021-04-30] MEDS ORDERED: IOHEXOL 300 MG/ML INFUS..BTL IV ONE ×2 (13:44→13:51)
[2021-04-30] MEDS ORDERED: BUPIVACAINE HCL/PF 0.75% 10 ML VIAL NR ONE ×2 (13:50→13:53)
[2021-04-30] MEDS ORDERED: LIDOCAINE HCL/PF 2% SDV 5ML VIAL INF ONE ×2 (13:50→13:52)
[2021-04-30] MEDS ORDERED: DEXAMETHASONE SOD PHOSPHATE 10 MG/1 ML VIAL IVPUSH ONE (13:51)
[2021-04-30 16:13] VITALS: BP 130/70; PULSE 80; TEMP 98
== END 2021-04-30 15:05 | disposition home or self-care (01) ==
LOC: JASU-SURG 04:30
PROVIDERS: ATTEND Pain Medicine Pain Medicine
PROC: 3E0T3TZ Introduction of Destructive Agent into Peripheral Nerves and Plexi, Percutaneous Approach (ICD-10-PCS; principal; 2021-04-30 14:30)
PROC: BR16YZZ Fluoroscopy of Lumbar Facet Joint(s) using Other Contrast (ICD-10-PCS; 2021-04-30 14:30)
DX: M47.816 Spondylosis without myelopathy or radiculopathy, lumbar region (principal)
CPT/HCPCS: 76000-TC-FY; J1100

== ENCOUNTER 2021-10-05 19:57 | Inpatient (IN) | payer MEDICARE, OTHER ==
[2021-10-05] MEDS ORDERED: VANCOMYCIN 1 GM in D5W (PRE-DOCKED) 1,000 MG/250 ML IVPB ONE (20:47)
[2021-10-05] MEDS ORDERED: PIPERACILLIN/TAZOB 3.375 GM 3.375 GM in DEXTROSE 5%-WATER - 50 ML IVPB ONE (21:02)
[2021-10-05] MEDS ORDERED: morphine CARPU-JECT 2 MG/1 ML DISP.SYRIN IVPUSH ONE (21:04)
[2021-10-05] MEDS ORDERED: ACETAMINOPHEN 1000 MG/100 ML BAG IVPB ONE (21:04)
[2021-10-05] MEDS ORDERED: VANCOMYCIN 1 GRAM (PRE-DOCKED) 1,000 MG/250 ML BAG IVPB ONE (21:21)
[2021-10-05] MEDS ORDERED: PIPERACILLIN/TAZOB 3.375 GM 3.375 GM/50 ML BAG IVPB ONE (21:21)
[2021-10-05] MEDS ORDERED: ACETAMINOPHEN INJECTION 100 ML IVPB ONE (21:21)
[2021-10-05 22:21] LABS: BASO % 0.6 % (0-2.0); EOS % 3.7 % (0-4.5); HEMATOCRIT 38.9 % (32.4-45.2); HEMOGLOBIN 13.2 GM/dL (10.7-15.3); LYMPH % 19.5 % (8-40); MCH 33.7 pg (25.7-33.7); MCHC 33.9 g/dl (32.0-36.0); MEAN CELL VOLUME 99.7 fl (80-96); MONO % 11.2 % (3.8-10.2); PLATELET COUNT 267 10^3/uL (134-434); RDW 14.7 % (11.6-15.6); WHITE BLOOD COUNT 7.2 K/mm3 (4.0-10.0)
[2021-10-05 22:32] LABS: INR 1.64 (0.83-1.09)
[2021-10-05 22:35] LABS: ACTIVATED PTT 34.7 SECONDS (25.2-36.5)
[2021-10-05 22:46] LABS: ALBUMIN 4.1 g/dl (3.4-5.0); BLOOD UREA NITROGEN 13.5 mg/dL (7-18)
[2021-10-05 22:50] LABS: CREATININE 0.8 mg/dL (0.55-1.3)
[2021-10-05 22:51] LABS: BILIRUBIN,TOTAL 0.4 mg/dL (0.2-1); TOT PROT 7.9 g/dl (6.4-8.2)
[2021-10-06 00:37] LABS: ERYTHROCYTE SEDIMENTATION RATE 66 mm/hr (0-30)
[2021-10-06 06:14] VITALS: BMI 30.8
[2021-10-06 08:17] LABS: HEMATOCRIT 35.7 % (32.4-45.2); MCH 33.6 pg (25.7-33.7); MCHC 33.5 g/dl (32.0-36.0); MEAN CELL VOLUME 100.3 fl (80-96); PLATELET COUNT 237 10^3/uL (134-434); RBC 3.56 M/mm3 (3.60-5.2); RDW 14.2 % (11.6-15.6); WHITE BLOOD COUNT 7.5 K/mm3 (4.0-10.0)
[2021-10-06 08:36] LABS: BLOOD UREA NITROGEN 12.9 mg/dL (7-18); CALCIUM 8.3 mg/dL (8.5-10.1)
[2021-10-06 08:40] LABS: CREATININE 0.8 mg/dL (0.55-1.3)
[2021-10-06] MEDS ORDERED: VANCOMYCIN/WATER FOR INJ (PEG) 1,000 MG/200 ML BAG IVPB SCH (09:00)
[2021-10-06] MEDS: HYDROCHLOROTHIAZIDE 25 MG TABLET (FP) PO SCH (09:52)
[2021-10-06] MEDS: GABAPENTIN 100 MG CAPSULE PO SCH (09:52)
[2021-10-06] MEDS: CLOPIDOGREL BISULFATE 75 MG TABLET (FP) PO SCH (09:52)
[2021-10-06] MEDS: BACITRACIN 15 GM TUBE TOPICAL OINTMENT TP SCH ×2 (15:36→22:23)
[2021-10-06] MEDS: ENOXAPARIN NA (PORCINE) 40 MG/0.4 ML DISP.SYRIN SQ SCH (18:51)
[2021-10-06] MEDS ORDERED: VANCOMYCIN 1 GM in D5W (PRE-DOCKED) 1,000 MG/250 ML IVPB SCH (21:00)
[2021-10-06] MEDS: VANCOMYCIN/WATER FOR INJ (PEG) 1,000 MG/200 ML BAG IVPB SCH ×2 (22:00→22:23)
[2021-10-07 09:03] LABS: BASO % 0.5 % (0-2.0); EOS % 6.7 % (0-4.5); HEMATOCRIT 36.7 % (32.4-45.2); HEMOGLOBIN 12.3 GM/dL (10.7-15.3); LYMPH % 24.3 % (8-40); MCH 33.6 pg (25.7-33.7); MCHC 33.6 g/dl (32.0-36.0); MEAN PLT VOLUME 8.9 fl (7.5-11.1); MONO % 12.2 % (3.8-10.2); NEUT % 56.3 % (42.8-82.8); PLATELET COUNT 242 10^3/uL (134-434); RBC 3.67 M/mm3 (3.60-5.2); RDW 14.4 % (11.6-15.6); WHITE BLOOD COUNT 5.1 K/mm3 (4.0-10.0)
[2021-10-07 09:35] LABS: BILIRUBIN,TOTAL 0.7 mg/dL (0.2-1); CALCIUM 8.4 mg/dL (8.5-10.1); MAGNESIUM 2.1 mg/dL (1.8-2.4)
[2021-10-07 09:38] LABS: CREATININE 0.8 mg/dL (0.55-1.3)
[2021-10-07 09:41] LABS: TOT PROT 6.4 g/dl (6.4-8.2)
[2021-10-07 09:50] LABS: ALBUMIN 3.1 g/dl (3.4-5.0)
[2021-10-07] MEDS: HYDROCHLOROTHIAZIDE 25 MG TABLET (FP) PO SCH (11:00)
[2021-10-07] MEDS: BACITRACIN 15 GM TUBE TOPICAL OINTMENT TP SCH ×2 (11:00→22:45)
[2021-10-07] MEDS: VANCOMYCIN/WATER FOR INJ (PEG) 1,000 MG/200 ML BAG IVPB SCH ×2 (11:00→22:50)
[2021-10-07] MEDS: CLOPIDOGREL BISULFATE 75 MG TABLET (FP) PO SCH (11:00)
[2021-10-07] MEDS: ENOXAPARIN NA (PORCINE) 40 MG/0.4 ML DISP.SYRIN SQ SCH (11:00)
[2021-10-07] MEDS: GABAPENTIN 100 MG CAPSULE PO SCH (11:00)
[2021-10-07] MEDS: FUROSEMIDE 20 MG TABLET (FP) PO SCH (14:09)
[2021-10-07] MEDS: APIXABAN 5 MG TABLET PO SCH (22:50)
[2021-10-08 09:02] LABS: BASO % 0.4 % (0-2.0); EOS % 6.2 % (0-4.5); HEMATOCRIT 37.1 % (32.4-45.2); HEMOGLOBIN 12.7 GM/dL (10.7-15.3); LYMPH % 25.3 % (8-40); MCH 34.3 pg (25.7-33.7); MCHC 34.2 g/dl (32.0-36.0); MEAN CELL VOLUME 100.3 fl (80-96); MEAN PLT VOLUME 8.6 fl (7.5-11.1); NEUT % 55.1 % (42.8-82.8); PLATELET COUNT 238 10^3/uL (134-434); RBC 3.69 M/mm3 (3.60-5.2); RDW 14.3 % (11.6-15.6); WHITE BLOOD COUNT 5.8 K/mm3 (4.0-10.0)
[2021-10-08] MEDS: APIXABAN 5 MG TABLET PO SCH ×2 (09:28→21:41)
[2021-10-08] MEDS: HYDROCHLOROTHIAZIDE 25 MG TABLET (FP) PO SCH (09:28)
[2021-10-08 09:29] LABS: CALCIUM 8.3 mg/dL (8.5-10.1)
[2021-10-08] MEDS: VANCOMYCIN/WATER FOR INJ (PEG) 1,000 MG/200 ML BAG IVPB SCH (09:29)
[2021-10-08] MEDS: FUROSEMIDE 20 MG TABLET (FP) PO SCH (09:29)
[2021-10-08] MEDS: GABAPENTIN 100 MG CAPSULE PO SCH (09:29)
[2021-10-08] MEDS: CLOPIDOGREL BISULFATE 75 MG TABLET (FP) PO SCH (09:29)
[2021-10-08 09:30] LABS: ALBUMIN 3.2 g/dl (3.4-5.0); BLOOD UREA NITROGEN 14.9 mg/dL (7-18)
[2021-10-08] MEDS: BACITRACIN 15 GM TUBE TOPICAL OINTMENT TP SCH ×2 (09:30→21:41)
[2021-10-08 09:33] LABS: CREATININE 0.8 mg/dL (0.55-1.3)
[2021-10-08 09:35] LABS: TOT PROT 6.5 g/dl (6.4-8.2)
[2021-10-08 09:36] LABS: BILIRUBIN,TOTAL 0.5 mg/dL (0.2-1)
[2021-10-08] MEDS ORDERED: ACETAMINOPHEN 325 MG TABLET (FP) PO PRN (16:08)
[2021-10-08] MEDS ORDERED: PIPERACILLIN/TAZOBACTAM 3.375 GM VIAL IVPB ONE (21:35)
[2021-10-08] MEDS ORDERED: DEXTROSE 5%-WATER - 50 ML IVPB ONE (21:35)
[2021-10-08] MEDS: PIPERACILLIN/TAZOB 3.375 GM 3.375 GM in DEXTROSE 5%-WATER - 50 ML IVPB SCH (21:41)
[2021-10-09] MEDS ORDERED: PIPERACILLIN/TAZOBACTAM 3.375 GM VIAL IVPB ONE ×3 (02:16→16:56)
[2021-10-09] MEDS ORDERED: DEXTROSE 5%-WATER - 50 ML IVPB ONE ×2 (02:16→10:50)
[2021-10-09] MEDS: PIPERACILLIN/TAZOB 3.375 GM 3.375 GM in DEXTROSE 5%-WATER - 50 ML IVPB SCH ×3 (02:19→17:01)
[2021-10-09 08:55] LABS: BASO % 0.7 % (0-2.0); EOS % 5.6 % (0-4.5); HEMATOCRIT 39.3 % (32.4-45.2); HEMOGLOBIN 13.6 GM/dL (10.7-15.3); LYMPH % 33.4 % (8-40); MCH 34.4 pg (25.7-33.7); MCHC 34.7 g/dl (32.0-36.0); MEAN CELL VOLUME 99.2 fl (80-96); MEAN PLT VOLUME 8.4 fl (7.5-11.1); MONO % 9.7 % (3.8-10.2); NEUT % 50.6 % (42.8-82.8); PLATELET COUNT 282 10^3/uL (134-434); RBC 3.96 M/mm3 (3.60-5.2); RDW 14.4 % (11.6-15.6); WHITE BLOOD COUNT 6.8 K/mm3 (4.0-10.0)
[2021-10-09] MEDS: VANCOMYCIN/WATER FOR INJ (PEG) 750 MG/150 ML BAG IVPB SCH (09:11)
[2021-10-09 09:18] LABS: ALBUMIN 3.6 g/dl (3.4-5.0); BLOOD UREA NITROGEN 18.5 mg/dL (7-18); CALCIUM 9.1 mg/dL (8.5-10.1); MAGNESIUM 2.3 mg/dL (1.8-2.4)
[2021-10-09 09:22] LABS: BILIRUBIN,TOTAL 0.5 mg/dL (0.2-1); TOT PROT 7.6 g/dl (6.4-8.2)
[2021-10-09] MEDS: HYDROCHLOROTHIAZIDE 25 MG TABLET (FP) PO SCH (10:58)
[2021-10-09] MEDS: GABAPENTIN 100 MG CAPSULE PO SCH (10:58)
[2021-10-09] MEDS: APIXABAN 5 MG TABLET PO SCH ×2 (10:58→21:44)
[2021-10-09] MEDS: FUROSEMIDE 20 MG TABLET (FP) PO SCH (10:58)
[2021-10-09] MEDS: CLOPIDOGREL BISULFATE 75 MG TABLET (FP) PO SCH (10:58)
[2021-10-09] MEDS: BACITRACIN 15 GM TUBE TOPICAL OINTMENT TP SCH ×2 (10:59→21:44)
[2021-10-10] MEDS ORDERED: DEXTROSE 5%-WATER - 50 ML IVPB ONE ×3 (01:18→17:24)
[2021-10-10] MEDS ORDERED: PIPERACILLIN/TAZOBACTAM 3.375 GM VIAL IVPB ONE ×3 (01:18→17:24)
[2021-10-10] MEDS: PIPERACILLIN/TAZOB 3.375 GM 3.375 GM in DEXTROSE 5%-WATER - 50 ML IVPB SCH ×3 (01:45→17:41)
[2021-10-10] MEDS: VANCOMYCIN/WATER FOR INJ (PEG) 750 MG/150 ML BAG IVPB SCH (08:38)
[2021-10-10 08:44] LABS: BASO % 0.6 % (0-2.0); EOS % 5.2 % (0-4.5); HEMATOCRIT 37.7 % (32.4-45.2); MCH 34.1 pg (25.7-33.7); MCHC 34.5 g/dl (32.0-36.0); MEAN CELL VOLUME 98.8 fl (80-96); MEAN PLT VOLUME 8.3 fl (7.5-11.1); MONO % 9.9 % (3.8-10.2); NEUT % 57.3 % (42.8-82.8); PLATELET COUNT 277 10^3/uL (134-434); RBC 3.81 M/mm3 (3.60-5.2); RDW 14.2 % (11.6-15.6)
[2021-10-10 09:08] LABS: CALCIUM 8.8 mg/dL (8.5-10.1)
[2021-10-10 09:09] LABS: ALBUMIN 3.5 g/dl (3.4-5.0); BLOOD UREA NITROGEN 15.9 mg/dL (7-18)
[2021-10-10 09:13] LABS: BILIRUBIN,TOTAL 0.6 mg/dL (0.2-1); TOT PROT 7.1 g/dl (6.4-8.2)
[2021-10-10] MEDS: GABAPENTIN 100 MG CAPSULE PO SCH (10:57)
[2021-10-10] MEDS: HYDROCHLOROTHIAZIDE 25 MG TABLET (FP) PO SCH (10:57)
[2021-10-10] MEDS: FUROSEMIDE 20 MG TABLET (FP) PO SCH (10:57)
[2021-10-10] MEDS: APIXABAN 5 MG TABLET PO SCH ×2 (10:57→21:58)
[2021-10-10] MEDS: CLOPIDOGREL BISULFATE 75 MG TABLET (FP) PO SCH (10:57)
[2021-10-10] MEDS: BACITRACIN 15 GM TUBE TOPICAL OINTMENT TP SCH ×2 (18:45→21:58)
[2021-10-11] MEDS ORDERED: DEXTROSE 5%-WATER - 50 ML IVPB ONE ×3 (01:19→17:04)
[2021-10-11] MEDS ORDERED: PIPERACILLIN/TAZOBACTAM 3.375 GM VIAL IVPB ONE ×3 (01:19→17:04)
[2021-10-11] MEDS: PIPERACILLIN/TAZOB 3.375 GM 3.375 GM in DEXTROSE 5%-WATER - 50 ML IVPB SCH ×3 (01:25→18:54)
[2021-10-11 09:43] LABS: BASO % 0.6 % (0-2.0); EOS % 5.1 % (0-4.5); HEMATOCRIT 35.4 % (32.4-45.2); HEMOGLOBIN 11.7 GM/dL (10.7-15.3); LYMPH % 26.6 % (8-40); MCH 33.3 pg (25.7-33.7); MCHC 33.1 g/dl (32.0-36.0); MEAN CELL VOLUME 100.4 fl (80-96); MEAN PLT VOLUME 8.4 fl (7.5-11.1); MONO % 12.2 % (3.8-10.2); NEUT % 55.5 % (42.8-82.8); PLATELET COUNT 275 10^3/uL (134-434); RBC 3.52 M/mm3 (3.60-5.2); RDW 14.1 % (11.6-15.6); WHITE BLOOD COUNT 5.6 K/mm3 (4.0-10.0)
[2021-10-11] MEDS: VANCOMYCIN/WATER FOR INJ (PEG) 750 MG/150 ML BAG IVPB SCH (11:13)
[2021-10-11] MEDS: HYDROCHLOROTHIAZIDE 25 MG TABLET (FP) PO SCH (11:14)
[2021-10-11] MEDS: CLOPIDOGREL BISULFATE 75 MG TABLET (FP) PO SCH (11:14)
[2021-10-11] MEDS: GABAPENTIN 100 MG CAPSULE PO SCH (11:14)
[2021-10-11] MEDS: APIXABAN 5 MG TABLET PO SCH (11:14)
[2021-10-11] MEDS: FUROSEMIDE 20 MG TABLET (FP) PO SCH (11:14)
[2021-10-11] MEDS: BACITRACIN 15 GM TUBE TOPICAL OINTMENT TP SCH (11:36)
[2021-10-11] MEDS ORDERED: POTASSIUM CHLORIDE TABS 20 MEQ TABLET.ER (FP) PO ONE (12:33)
[2021-10-11 12:40] LABS: CALCIUM 8.3 mg/dL (8.5-10.1)
[2021-10-11 12:41] LABS: ALBUMIN 3.1 g/dl (3.4-5.0); BLOOD UREA NITROGEN 17.4 mg/dL (7-18)
[2021-10-11 12:44] LABS: BILIRUBIN,TOTAL 0.5 mg/dL (0.2-1); CREATININE 0.9 mg/dL (0.55-1.3); TOT PROT 6.4 g/dl (6.4-8.2)
[2021-10-11 15:28] VITALS: BP 130/58; PULSE 62; TEMP 97.7
== END 2021-10-11 20:31 | disposition home or self-care (01) | DRG 603 ==
LOC: JER 19:57 → INTOOBSV 23:41 → JERBED 23:41 → UNDOADMOB 23:41 → JERBED 23:52 → J8W 10-06 05:19 → OBSVTOIN 10-07 08:19
PROVIDERS: ADMIT Hospitalist; ATTEND Nurse Practitioner Family
DX: L03.115 Cellulitis of right lower limb (principal); M00.9 Pyogenic arthritis, unspecified; I11.0 Hypertensive heart disease with heart failure; E11.9 Type 2 diabetes mellitus without complications; E03.9 Hypothyroidism, unspecified; E66.9 Obesity, unspecified; E78.5 Hyperlipidemia, unspecified; I25.10 Atherosclerotic heart disease of native coronary artery without angina pectoris; Z79.02 Long term (current) use of antithrombotics/antiplatelets; M79.606 Pain in leg, unspecified; M79.661 Pain in right lower leg; G47.33 Obstructive sleep apnea (adult) (pediatric); Z79.01 Long term (current) use of anticoagulants; R50.9 Fever, unspecified; R60.0 Localized edema; I50.9 Heart failure, unspecified; K21.9 Gastro-esophageal reflux disease without esophagitis
CPT/HCPCS: 36415; 73590-TC-RT-FY; 73610-TC-RT-FY; 73630-TC-RT-FY; 73700-TC-RT; 80048; 80053; 83036; 83605; 83690; 83735; 84439; 84443; 85025; 85027; 85610; 85651; 85730; 86140; 87040; 87081; 93005; 93010; 93971-TC; 97116-GP; 97161-GP; 99285-25; C9803-CS; G0378; G0480; U0003; U0005

== ENCOUNTER 2022-03-17 12:55 | Observation (INO) | payer OTHER ==
[2022-03-17 15:56] LABS: BASO % 0.7 % (0-2.0); EOS % 1.5 % (0-4.5); HEMATOCRIT 37.5 % (32.4-45.2); HEMOGLOBIN 12.7 GM/dL (10.7-15.3); MCH 33.7 pg (25.7-33.7); MCHC 33.8 g/dl (32.0-36.0); MEAN CELL VOLUME 99.9 fl (80-96); MEAN PLT VOLUME 8.2 fl (7.5-11.1); MONO % 10.2 % (3.8-10.2); NEUT % 57.6 % (42.8-82.8); PLATELET COUNT 245 10^3/uL (134-434); RBC 3.75 M/mm3 (3.60-5.2); RDW 14.8 % (11.6-15.6); WHITE BLOOD COUNT 6.5 K/mm3 (4.0-10.0)
[2022-03-17 16:04] LABS: INR 1.21 (0.83-1.09); PROTHROMBIN TIME (PATIENT) 13.9 SEC (9.7-13.0)
[2022-03-17 16:07] LABS: ACTIVATED PTT 33.2 SECONDS (25.2-36.5)
[2022-03-17 16:20] LABS: CALCIUM 8.8 mg/dL (8.5-10.1)
[2022-03-17 16:21] LABS: ALBUMIN 3.5 g/dl (3.4-5.0); BLOOD UREA NITROGEN 12.4 mg/dL (7-18); MAGNESIUM 2.1 mg/dL (1.8-2.4)
[2022-03-17 16:24] LABS: CREATININE 0.8 mg/dL (0.55-1.3)
[2022-03-17 16:25] LABS: BILIRUBIN,TOTAL 0.4 mg/dL (0.2-1); TOT PROT 7.3 g/dl (6.4-8.2)
[2022-03-17 16:29] LABS: N-TERMINAL BNP 217.8 pg/ml (5-450)
[2022-03-17] MEDS ORDERED: SODIUM CHLORIDE 0.9% 500 ML INFUS.BAG IV ONE (16:42)
[2022-03-17] MEDS ORDERED: ACETAMINOPHEN 1000 MG/100 ML BAG IVPB ONE (16:42)
[2022-03-17] MEDS ORDERED: ACETAMINOPHEN INJECTION 100 ML IVPB ONE (17:06)
[2022-03-17] MEDS ORDERED: MECLIZINE HCL 25 MG TABLET (FP) PO PRN (17:43)
[2022-03-17] MEDS ORDERED: ACETAMINOPHEN 325 MG TABLET (FP) PO PRN (18:22)
[2022-03-17 20:39] VITALS: RESP 20; BMI 32.3
[2022-03-17] MEDS: APIXABAN 5 MG TABLET PO SCH (21:20)
[2022-03-17] MEDS ORDERED: ATORVASTATIN CA 20 MG TABLET (FP) PO SCH (22:00)
[2022-03-18 08:37] LABS: HEMATOCRIT 35.8 % (32.4-45.2); HEMOGLOBIN 11.9 GM/dL (10.7-15.3); MCHC 33.2 g/dl (32.0-36.0); MEAN CELL VOLUME 99.5 fl (80-96); PLATELET COUNT 239 10^3/uL (134-434); RDW 15.1 % (11.6-15.6)
[2022-03-18 09:04] LABS: CREATININE 0.7 mg/dL (0.55-1.3)
[2022-03-18 09:05] LABS: BLOOD UREA NITROGEN 13.4 mg/dL (7-18)
[2022-03-18 09:06] LABS: CALCIUM 8.8 mg/dL (8.5-10.1)
[2022-03-18 09:10] LABS: MAGNESIUM 2.3 mg/dL (1.8-2.4); PHOSPHOROUS 3.2 mg/dL (2.5-4.9)
[2022-03-18] MEDS ORDERED: amLODIPine BESYLATE 5 MG TABLET (FP) PO SCH (10:00)
[2022-03-18] MEDS ORDERED: HYDROCHLOROTHIAZIDE 25 MG TABLET (FP) PO SCH (10:00)
[2022-03-18] MEDS ORDERED: LOSARTAN POTASSIUM 50 MG TABLET PO SCH (10:00)
[2022-03-18] MEDS ORDERED: CLOPIDOGREL BISULFATE 75 MG TABLET (FP) PO SCH (10:00)
[2022-03-18] MEDS: APIXABAN 5 MG TABLET PO SCH (10:05)
[2022-03-18 16:09] VITALS: BP 143/78; PULSE 78; TEMP 97.1
== END 2022-03-18 18:49 | disposition home or self-care (01) ==
LOC: JER 12:55 → JERBED 16:51 → J4W 19:00
PROVIDERS: ADMIT Internal Medicine; ATTEND Internal Medicine
PROC: 3E033NZ Introduction of Analgesics, Hypnotics, Sedatives into Peripheral Vein, Percutaneous Approach (ICD-10-PCS; principal; 2022-03-17)
DX: I25.10 Atherosclerotic heart disease of native coronary artery without angina pectoris (principal); I11.9 Hypertensive heart disease without heart failure; Z86.718 Personal history of other venous thrombosis and embolism; Z29.8 Encounter for other specified prophylactic measures; E78.5 Hyperlipidemia, unspecified; R07.9 Chest pain, unspecified
CPT/HCPCS: 36415; 71045-TC-FY; 80048; 80053; 80061; 83036; 83735; 83880; 84100; 84484; 85025; 85027; 85610; 85730; 93005; 93010; 93306-TC; 96374; 99285-25; C9803-CS; G0378; U0003; U0005

== ENCOUNTER 2022-08-03 15:52 | Observation (INO) | payer OTHER ==
[2022-08-03] MEDS ORDERED: FAMOTIDINE 20 MG/50 ML IVPB 20 MG/50 ML MG IVPB ONE ×2 (16:52→17:03)
[2022-08-03] MEDS ORDERED: MAG HYDROX/AL HYDROX/SIMETH 30 ML UNIT-DOSE CUP PO ONE (16:52)
[2022-08-03] MEDS ORDERED: SODIUM CHLORIDE 0.9% 500 ML INFUS.BAG IV ONE (16:52)
[2022-08-03] MEDS ORDERED: PANTOPRAZOLE SODIUM 40 MG VIAL IVPUSH ONE (16:58)
[2022-08-03] MEDS ORDERED: MAG HYDROX/AL HYDROX/SIMETH 30 ML UNIT-DOSE CUP ONE (17:03)
[2022-08-03] MEDS ORDERED: PANTOPRAZOLE SODIUM 40 MG/100 ML BAG IVPB ONE (17:03)
[2022-08-03 17:57] LABS: BASO % 0.6 % (0-2.0); EOS % 1.7 % (0-4.5); HEMATOCRIT 36.6 % (32.4-45.2); HEMOGLOBIN 12.5 GM/dL (10.7-15.3); LYMPH % 31.8 % (8-40); MCH 33.2 pg (25.7-33.7); MCHC 34.3 g/dl (32.0-36.0); MEAN CELL VOLUME 96.8 fl (80-96); MEAN PLT VOLUME 8.9 fl (7.5-11.1); MONO % 9.8 % (3.8-10.2); NEUT % 56.1 % (42.8-82.8); PLATELET COUNT 184 10^3/uL (134-434); RBC 3.78 M/mm3 (3.60-5.2); RDW 14.6 % (11.6-15.6); WHITE BLOOD COUNT 6.8 K/mm3 (4.0-10.0)
[2022-08-03 18:27] LABS: ALBUMIN 3.4 g/dl (3.4-5.0); BLOOD UREA NITROGEN 17.3 mg/dL (7-18); CALCIUM 8.7 mg/dL (8.5-10.1)
[2022-08-03 18:30] LABS: CREATININE 0.8 mg/dL (0.55-1.3)
[2022-08-03 18:32] LABS: BILIRUBIN,TOTAL 0.4 mg/dL (0.2-1)
[2022-08-03 18:35] LABS: PH,URINE 6.5 (5.0-8.0); URINE APPEARANCE CLEAR; URINE BILIRUBIN NEGATIVE (NEGATIVE); URINE COLOR YELLOW; URINE GLUCOSE (UA) NEGATIVE (NEGATIVE); URINE KETONE NEGATIVE (NEGATIVE); URINE LEUK ESTERASE NEGATIVE (NEGATIVE); URINE NITRITE NEGATIVE (NEGATIVE); URINE PROTEIN NEGATIVE (NEGATIVE); URINE UROBILINOGEN 0.2 mg/dL (0.2-1.0)
[2022-08-03 18:52] LABS: MAGNESIUM 2.1 mg/dL (1.8-2.4)
[2022-08-03 18:56] LABS: PHOSPHOROUS 3.1 mg/dL (2.5-4.9)
[2022-08-04] MEDS ORDERED: MECLIZINE HCL 25 MG TABLET (FP) PO PRN (00:27)
[2022-08-04] MEDS ORDERED: METOCLOPRAMIDE HCL INJECTION 10 MG/2 ML VIAL IVPUSH PRN (00:32)
[2022-08-04 04:11] VITALS: RESP 18
[2022-08-04 04:26] VITALS: BMI 29.2
[2022-08-04 07:51] LABS: CALCIUM 8.5 mg/dL (8.5-10.1)
[2022-08-04 07:52] LABS: ALBUMIN 3.1 g/dl (3.4-5.0); BLOOD UREA NITROGEN 13.2 mg/dL (7-18)
[2022-08-04 07:55] LABS: CREATININE 0.7 mg/dL (0.55-1.3); PHOSPHOROUS 3.1 mg/dL (2.5-4.9)
[2022-08-04 07:57] LABS: BILIRUBIN,TOTAL 0.8 mg/dL (0.2-1); TOT PROT 6.3 g/dl (6.4-8.2)
[2022-08-04 08:05] LABS: HEMATOCRIT 36.6 % (32.4-45.2); HEMOGLOBIN 12.3 GM/dL (10.7-15.3); MCH 32.5 pg (25.7-33.7); MCHC 33.6 g/dl (32.0-36.0); MEAN CELL VOLUME 96.8 fl (80-96); PLATELET COUNT 184 10^3/uL (134-434); RBC 3.78 M/mm3 (3.60-5.2); RDW 14.5 % (11.6-15.6); WHITE BLOOD COUNT 7.5 K/mm3 (4.0-10.0)
[2022-08-04] MEDS ORDERED: APIXABAN 5 MG TABLET PO SCH (10:00)
[2022-08-04] MEDS ORDERED: FAMOTIDINE 20 MG TABLET PO SCH (10:00)
[2022-08-04] MEDS ORDERED: LOSARTAN POTASSIUM 50 MG TABLET PO SCH (10:00)
[2022-08-04] MEDS ORDERED: metoPROLOL SUCCINATE 25 MG TAB.SR.24H (FP) PO SCH (10:00)
[2022-08-04] MEDS ORDERED: HYDROCHLOROTHIAZIDE 25 MG TABLET (FP) PO SCH (10:00)
[2022-08-04] MEDS ORDERED: CLOPIDOGREL BISULFATE 75 MG TABLET (FP) PO SCH (10:00)
[2022-08-04] MEDS ORDERED: FUROSEMIDE 20 MG TABLET (FP) PO SCH (10:00)
[2022-08-04] MEDS ORDERED: amLODIPine BESYLATE 5 MG TABLET (FP) PO SCH (10:00)
[2022-08-04 15:22] VITALS: BP 99/50; PULSE 92; TEMP 98.2
[2022-08-04] MEDS ORDERED: ATORVASTATIN CA 20 MG TABLET (FP) PO SCH (22:00)
== END 2022-08-04 17:09 | disposition home or self-care (01) ==
LOC: JER 15:52 → JERBED 20:40 → J4W 08-04 02:35
PROVIDERS: ADMIT Internal Medicine; ATTEND Internal Medicine
PROC: 3E033GC Introduction of Other Therapeutic Substance into Peripheral Vein, Percutaneous Approach (ICD-10-PCS; principal; 2022-08-03)
PROC: 3E033GC Introduction of Other Therapeutic Substance into Peripheral Vein, Percutaneous Approach (ICD-10-PCS; 2022-08-03)
PROC: 3E0337Z Introduction of Electrolytic and Water Balance Substance into Peripheral Vein, Percutaneous Approach (ICD-10-PCS; 2022-08-03)
DX: I25.10 Atherosclerotic heart disease of native coronary artery without angina pectoris (principal); I11.9 Hypertensive heart disease without heart failure; E78.5 Hyperlipidemia, unspecified; R10.13 Epigastric pain; R63.0 Anorexia; R11.2 Nausea with vomiting, unspecified; Z86.718 Personal history of other venous thrombosis and embolism
CPT/HCPCS: 0241U-QW; 36415; 71045-TC-FY; 74177-TC; 76705-TC; 80053; 81003; 83690; 83735; 84100; 84484; 85025; 85027; 87086; 87425; 87798; 93005; 93010; 96365; 96375; 97116-GP; 97162-GP; 99285-25; G0378; Q9967

== ENCOUNTER 2022-12-23 12:23 | Emergency (ER) | payer OTHER ==
[2022-12-23 12:35] VITALS: TEMP 99.2; BMI 29.9
[2022-12-23] MEDS ORDERED: ACETAMINOPHEN 1000 MG/100 ML BAG IVPB ONE (13:01)
[2022-12-23] MEDS ORDERED: SODIUM CHLORIDE 1,000 ML IV STA (13:02)
[2022-12-23] MEDS ORDERED: FAMOTIDINE 20 MG/50 ML IVPB 20 MG/50 ML MG IVPB ONE ×2 (13:02→13:36)
[2022-12-23] MEDS ORDERED: ACETAMINOPHEN INJECTION 100 ML IVPB ONE (13:36)
[2022-12-23 13:42] LABS: BASO % 0.3 % (0-2.0); EOS % 0.5 % (0-4.5); HEMATOCRIT 38.6 % (32.4-45.2); HEMOGLOBIN 12.5 GM/dL (10.7-15.3); LYMPH % 7.7 % (8-40); MCH 32.8 pg (25.7-33.7); MCHC 32.4 g/dl (32.0-36.0); MEAN CELL VOLUME 101.2 fl (80-96); MEAN PLT VOLUME 9.7 fl (7.5-11.1); MONO % 10.3 % (3.8-10.2); NEUT % 81.2 % (42.8-82.8); PLATELET COUNT 307 10^3/uL (134-434); RBC 3.82 M/mm3 (3.60-5.2); RDW 13.4 % (11.6-15.6); WHITE BLOOD COUNT 8.2 K/mm3 (4.0-10.0)
[2022-12-23 14:07] LABS: POTASSIUM 4.1 mmol/L (3.5-5.1)
[2022-12-23 14:10] LABS: ALBUMIN 3.1 g/dl (3.4-5.0); BLOOD UREA NITROGEN 15.2 mg/dL (7-18); CALCIUM 8.3 mg/dL (8.5-10.1)
[2022-12-23 14:15] LABS: TOT PROT 6.7 g/dl (6.4-8.2)
[2022-12-23 14:18] LABS: BILIRUBIN,TOTAL 0.3 mg/dL (0.2-1)
[2022-12-23 14:58] LABS: PH,URINE 6.5 (5.0-8.0); URINE APPEARANCE CLEAR; URINE BILIRUBIN NEGATIVE (NEGATIVE); URINE COLOR YELLOW; URINE GLUCOSE (UA) NEGATIVE (NEGATIVE); URINE KETONE NEGATIVE (NEGATIVE); URINE LEUK ESTERASE NEGATIVE (NEGATIVE); URINE NITRITE NEGATIVE (NEGATIVE); URINE PROTEIN NEGATIVE (NEGATIVE); URINE UROBILINOGEN 0.2 mg/dL (0.2-1.0)
[2022-12-23 15:07] LABS: INR 1.21 (0.83-1.09)
[2022-12-23 18:22] VITALS: BP 144/80; PULSE 81; RESP 20
== END 2022-12-23 18:39 | disposition home or self-care (01) ==
LOC: JER 12:23
PROC: 3E033GC Introduction of Other Therapeutic Substance into Peripheral Vein, Percutaneous Approach (ICD-10-PCS; principal; 2022-12-23)
PROC: 3E033GC Introduction of Other Therapeutic Substance into Peripheral Vein, Percutaneous Approach (ICD-10-PCS; 2022-12-23)
PROC: 3E0337Z Introduction of Electrolytic and Water Balance Substance into Peripheral Vein, Percutaneous Approach (ICD-10-PCS; 2022-12-23)
DX: R50.9 Fever, unspecified (principal); R11.10 Vomiting, unspecified; R10.13 Epigastric pain; R53.1 Weakness; J10.1 Influenza due to other identified influenza virus with other respiratory manifestations; Z20.822 Contact with and (suspected) exposure to COVID-19
CPT/HCPCS: 0241U-QW; 36415; 71045-TC-FY; 74177-TC; 80053; 81003; 83690; 85025; 85610; 87086; 93005; 93010; 96361; 96365; 96375; 99285-25; Q9967

== ENCOUNTER 2023-08-26 13:43 | Observation (INO) | payer BC, OTHER ==
[2023-08-26 13:55] VITALS: BP 140/75; PULSE 87; RESP 16; BMI 30.9
[2023-08-26 15:20] LABS: BASO % 0.7 % (0-2.0); EOS % 3.1 % (0-4.5); HEMATOCRIT 40.7 % (32.4-45.2); HEMOGLOBIN 13.3 GM/dL (10.7-15.3); LYMPH % 28.3 % (8-40); MCHC 32.8 g/dl (32.0-36.0); MEAN CELL VOLUME 100.7 fl (80-96); MEAN PLT VOLUME 8.8 fl (7.5-11.1); MONO % 16.1 % (3.8-10.2); NEUT % 51.8 % (42.8-82.8); PLATELET COUNT 192 10^3/uL (134-434); RBC 4.04 M/mm3 (3.60-5.2); RDW 14.8 % (11.6-15.6); WHITE BLOOD COUNT 6.1 K/mm3 (4.0-10.0)
[2023-08-26 15:31] LABS: URINE APPEARANCE CLEAR; URINE BILIRUBIN NEGATIVE (NEGATIVE); URINE COLOR YELLOW; URINE GLUCOSE (UA) NEGATIVE (NEGATIVE); URINE KETONE NEGATIVE (NEGATIVE); URINE LEUK ESTERASE NEGATIVE (NEGATIVE); URINE NITRITE NEGATIVE (NEGATIVE); URINE PROTEIN NEGATIVE (NEGATIVE); URINE UROBILINOGEN 0.2 mg/dL (0.2-1.0)
[2023-08-26 15:43] LABS: CHLORIDE 107 mmol/L (98-107); SODIUM 140 mmol/L (136-145)
[2023-08-26 15:45] LABS: ALBUMIN 3.2 g/dl (3.4-5.0); BLOOD UREA NITROGEN 12.2 mg/dL (7-18); CO2 28 mmol/L (21-32); GLUCOSE,RANDOM 108 mg/dL (74-106); MAGNESIUM 2.4 mg/dL (1.8-2.4)
[2023-08-26 15:48] LABS: CREATININE 0.9 mg/dL (0.55-1.3); SGOT/AST 52 U/L (15-37); SGPT/ALT 32 U/L (13-61)
[2023-08-26 15:50] LABS: BILIRUBIN,TOTAL 0.4 mg/dL (0.2-1); TOT PROT 7.6 g/dl (6.4-8.2)
[2023-08-26 15:51] LABS: ALK PHOS 79 U/L (45-117)
[2023-08-26 15:55] LABS: ANION GAP 6 mmol/L (4-13); POTASSIUM 6.1 mmol/L (3.5-5.1)
[2023-08-26 16:21] LABS: INR 1.17 (0.83-1.09); PROTHROMBIN TIME (PATIENT) 13.5 SEC (9.7-13.0)
[2023-08-26 16:33] LABS: POTASSIUM 4.2 mmol/L (3.5-5.1)
[2023-08-26 16:34] LABS: CALCIUM 8.7 mg/dL (8.5-10.1)
[2023-08-26 16:35] LABS: BLOOD UREA NITROGEN 11.4 mg/dL (7-18)
[2023-08-26 16:38] LABS: CREATININE 0.8 mg/dL (0.55-1.3)
[2023-08-26] MEDS ORDERED: PANTOPRAZOLE 40 MG TABLET PO ONE (20:17)
[2023-08-26] MEDS ORDERED: IBUPROFEN 400 MG TABLET (FP) PO ONE (20:17)
[2023-08-26] MEDS: PANTOPRAZOLE 40 MG TABLET PO ONE (20:20)
[2023-08-26] MEDS: IBUPROFEN 400 MG TABLET (FP) PO ONE (20:20)
[2023-08-26] MEDS ORDERED: predniSONE 20 MG TABLET (UD) ONE (21:56)
[2023-08-26] MEDS: predniSONE 20 MG TABLET (UD) PO ONE (22:01)
== END 2023-08-26 22:05 | disposition home or self-care (01) ==
LOC: JER 13:43 → JERBED 18:49
PROVIDERS: ADMIT Internal Medicine; ATTEND Internal Medicine
DX: R07.89 Other chest pain (principal); E78.5 Hyperlipidemia, unspecified; I25.10 Atherosclerotic heart disease of native coronary artery without angina pectoris; I11.0 Hypertensive heart disease with heart failure; Z86.718 Personal history of other venous thrombosis and embolism; Z79.01 Long term (current) use of anticoagulants; K21.9 Gastro-esophageal reflux disease without esophagitis; K57.90 Diverticulosis of intestine, part unspecified, without perforation or abscess without bleeding; G47.33 Obstructive sleep apnea (adult) (pediatric); Z91.199 Patient's noncompliance with other medical treatment and regimen due to unspecified reason; Z90.49 Acquired absence of other specified parts of digestive tract
CPT/HCPCS: 0241U-QW; 36415; 71045-TC-FY; 71275-TC; 80048; 80053; 81003; 83735; 84484; 85025; 85610; 85730; 87086; 93005; 93010; 99285-25; G0378

== ENCOUNTER 2023-09-25 16:37 | Inpatient (IN) | payer BC, OTHER ==
[2023-09-25 16:47] VITALS: BMI 32.4
[2023-09-25 18:21] LABS: BASO % 0.2 % (0-2.0); EOS % 0.3 % (0-4.5); HEMATOCRIT 37.7 % (32.4-45.2); HEMOGLOBIN 12.7 GM/dL (10.7-15.3); MCH 33.3 pg (25.7-33.7); MCHC 33.7 g/dl (32.0-36.0); MEAN CELL VOLUME 98.6 fl (80-96); MONO % 10.8 % (3.8-10.2); NEUT % 79.7 % (42.8-82.8); PLATELET COUNT 222 10^3/uL (134-434); RBC 3.83 M/mm3 (3.60-5.2); RDW 14.9 % (11.6-15.6); WHITE BLOOD COUNT 6.8 K/mm3 (4.0-10.0)
[2023-09-25 18:27] LABS: INR 2.58 (0.83-1.09); PROTHROMBIN TIME (PATIENT) 29.7 SEC (9.7-13.0)
[2023-09-25 18:30] LABS: ACTIVATED PTT 35.1 SECONDS (25.2-36.5)
[2023-09-25] MEDS ORDERED: ONDANSETRON *ODT* 4 MG TABLET ONE (18:32)
[2023-09-25] MEDS ORDERED: ACETAMINOPHEN INJECTION 100 ML IVPB ONE (18:32)
[2023-09-25] MEDS ORDERED: MAG HYDROX/AL HYDROX/SIMETH 30 ML UNIT-DOSE CUP ONE (18:33)
[2023-09-25] MEDS ORDERED: FAMOTIDINE 20 MG/50 ML IVPB 20 MG/50 ML MG IVPB ONE (18:33)
[2023-09-25] MEDS: ACETAMINOPHEN 1000 MG/100 ML BAG IVPB ONE (18:44)
[2023-09-25] MEDS: ONDANSETRON *ODT* 4 MG TABLET SL ONE (18:44)
[2023-09-25] MEDS: FAMOTIDINE 20 MG/50 ML IVPB 20 MG/50 ML MG IVPB ONE (18:44)
[2023-09-25] MEDS: MAG HYDROX/AL HYDROX/SIMETH 30 ML UNIT-DOSE CUP PO ONE (18:44)
[2023-09-25 19:08] LABS: POTASSIUM 3.8 mmol/L (3.5-5.1)
[2023-09-25 19:19] LABS: ALBUMIN 3.3 g/dl (3.4-5.0); BILIRUBIN,TOTAL 3.5 mg/dL (0.2-1); BLOOD UREA NITROGEN 13.3 mg/dL (7-18); CALCIUM 8.5 mg/dL (8.5-10.1); MAGNESIUM 2.1 mg/dL (1.8-2.4); N-TERMINAL BNP 304.5 pg/ml (5-450); TOT PROT 6.8 g/dl (6.4-8.2)
[2023-09-25 20:28] LABS: URINE APPEARANCE CLEAR; URINE BILIRUBIN NEGATIVE (NEGATIVE); URINE COLOR DK YELLOW; URINE GLUCOSE (UA) NEGATIVE (NEGATIVE); URINE KETONE NEGATIVE (NEGATIVE); URINE LEUK ESTERASE NEGATIVE (NEGATIVE); URINE NITRITE NEGATIVE (NEGATIVE); URINE PROTEIN NEGATIVE (NEGATIVE)
[2023-09-26] MEDS ORDERED: ACETAMINOPHEN 325 MG TABLET (FP) PO PRN (00:34)
[2023-09-26 00:59] LABS: BILIRUBIN,DIRECT 2.8 mg/dL (0.0-0.2)
[2023-09-26] MEDS: PHYTONADIONE 5 MG TABLET PO ONE (01:50)
[2023-09-26] MEDS: SODIUM CHLORIDE 1,000 ML IV SCH (01:50)
[2023-09-26 07:15] LABS: BASO % 0.4 % (0-2.0); EOS % 0.2 % (0-4.5); HEMATOCRIT 35.4 % (32.4-45.2); HEMOGLOBIN 11.9 GM/dL (10.7-15.3); LYMPH % 12.5 % (8-40); MCH 33.3 pg (25.7-33.7); MCHC 33.5 g/dl (32.0-36.0); MEAN CELL VOLUME 99.5 fl (80-96); MEAN PLT VOLUME 8.8 fl (7.5-11.1); MONO % 11.7 % (3.8-10.2); NEUT % 75.2 % (42.8-82.8); PLATELET COUNT 198 10^3/uL (134-434); RBC 3.56 M/mm3 (3.60-5.2); RDW 14.8 % (11.6-15.6); WHITE BLOOD COUNT 8.3 K/mm3 (4.0-10.0)
[2023-09-26 07:38] LABS: INR 2.13 (0.83-1.09); POTASSIUM 3.8 mmol/L (3.5-5.1); PROTHROMBIN TIME (PATIENT) 24.5 SEC (9.7-13.0)
[2023-09-26 07:39] LABS: CALCIUM 8.5 mg/dL (8.5-10.1)
[2023-09-26 07:40] LABS: BLOOD UREA NITROGEN 12.6 mg/dL (7-18); MAGNESIUM 2.2 mg/dL (1.8-2.4)
[2023-09-26 07:43] LABS: BILIRUBIN,DIRECT 3.5 mg/dL (0.0-0.2); CREATININE 0.9 mg/dL (0.55-1.3)
[2023-09-26 07:45] LABS: BILIRUBIN,TOTAL 4.1 mg/dL (0.2-1); TOT PROT 6.1 g/dl (6.4-8.2)
[2023-09-26] MEDS: amLODIPine BESYLATE 5 MG TABLET (FP) PO SCH (10:20)
[2023-09-26] MEDS: LOSARTAN POTASSIUM 50 MG TABLET PO SCH (10:20)
[2023-09-26] MEDS: HYDROCHLOROTHIAZIDE 25 MG TABLET (FP) PO SCH (10:20)
[2023-09-26] MEDS: FAMOTIDINE 20 MG TABLET PO SCH (10:20)
[2023-09-26] MEDS: PANTOPRAZOLE SODIUM 40 MG VIAL IVPUSH SCH (10:20)
[2023-09-26] MEDS: PHYTONADIONE 5 MG TABLET PO SCH (11:57)
[2023-09-26] MEDS: RIVAROXABAN 20 MG TABLET PO SCH (17:34)
[2023-09-27 07:09] LABS: HEMATOCRIT 35.2 % (32.4-45.2); HEMOGLOBIN 11.9 GM/dL (10.7-15.3); MCH 33.2 pg (25.7-33.7); MCHC 33.7 g/dl (32.0-36.0); MEAN CELL VOLUME 98.5 fl (80-96); MEAN PLT VOLUME 8.8 fl (7.5-11.1); PLATELET COUNT 189 10^3/uL (134-434); RBC 3.58 M/mm3 (3.60-5.2); RDW 15.2 % (11.6-15.6); WHITE BLOOD COUNT 5.7 K/mm3 (4.0-10.0)
[2023-09-27 07:21] LABS: POTASSIUM 3.8 mmol/L (3.5-5.1)
[2023-09-27 07:23] LABS: CALCIUM 8.5 mg/dL (8.5-10.1)
[2023-09-27 07:24] LABS: ALBUMIN 2.9 g/dl (3.4-5.0); BLOOD UREA NITROGEN 15.4 mg/dL (7-18)
[2023-09-27 07:28] LABS: BILIRUBIN,TOTAL 3.2 mg/dL (0.2-1); TOT PROT 5.9 g/dl (6.4-8.2)
[2023-09-28 08:13] LABS: BASO % 0.5 % (0-2.0); EOS % 3.3 % (0-4.5); HEMATOCRIT 34.5 % (32.4-45.2); HEMOGLOBIN 11.8 GM/dL (10.7-15.3); LYMPH % 23.2 % (8-40); MCH 33.6 pg (25.7-33.7); MCHC 34.1 g/dl (32.0-36.0); MEAN CELL VOLUME 98.5 fl (80-96); MEAN PLT VOLUME 8.9 fl (7.5-11.1); MONO % 11.6 % (3.8-10.2); NEUT % 61.4 % (42.8-82.8); PLATELET COUNT 212 10^3/uL (134-434); RBC 3.51 M/mm3 (3.60-5.2); RDW 15.1 % (11.6-15.6); WHITE BLOOD COUNT 5.1 K/mm3 (4.0-10.0)
[2023-09-28 08:21] LABS: POTASSIUM 3.7 mmol/L (3.5-5.1)
[2023-09-28 08:30] LABS: CREATININE 0.9 mg/dL (0.55-1.3)
[2023-09-28 08:31] LABS: BILIRUBIN,TOTAL 1.6 mg/dL (0.2-1); BLOOD UREA NITROGEN 13.7 mg/dL (7-18); TOT PROT 5.8 g/dl (6.4-8.2)
[2023-09-28 08:32] LABS: BILIRUBIN,DIRECT 1.1 mg/dL (0.0-0.2)
[2023-09-28 08:33] LABS: ALBUMIN 2.7 g/dl (3.4-5.0)
[2023-09-28 08:39] LABS: CALCIUM 8.7 mg/dL (8.5-10.1)
[2023-09-28] MEDS: ENOXAPARIN NA (PORCINE) 80 MG/0.8 ML DISP.SYRIN SQ SCH (09:29)
[2023-09-28] MEDS: PIPERACILLIN/TAZOB 3.375 GM 3.375 GM in DEXTROSE 5%-WATER - 50 ML IVPB SCH (17:04)
[2023-09-29 07:30] LABS: POTASSIUM 3.4 mmol/L (3.5-5.1)
[2023-09-29 07:32] LABS: CALCIUM 8.1 mg/dL (8.5-10.1)
[2023-09-29 07:33] LABS: ALBUMIN 2.7 g/dl (3.4-5.0); BLOOD UREA NITROGEN 12.4 mg/dL (7-18)
[2023-09-29 07:34] LABS: BASO % 0.4 % (0-2.0); EOS % 3.9 % (0-4.5); HEMOGLOBIN 12.1 GM/dL (10.7-15.3); LYMPH % 32.6 % (8-40); MCHC 34.5 g/dl (32.0-36.0); MEAN CELL VOLUME 98.6 fl (80-96); MEAN PLT VOLUME 8.8 fl (7.5-11.1); MONO % 13.9 % (3.8-10.2); NEUT % 49.2 % (42.8-82.8); PLATELET COUNT 229 10^3/uL (134-434); RBC 3.55 M/mm3 (3.60-5.2); WHITE BLOOD COUNT 4.6 K/mm3 (4.0-10.0)
[2023-09-29 07:36] LABS: CREATININE 1.1 mg/dL (0.55-1.3)
[2023-09-29 07:37] LABS: BILIRUBIN,TOTAL 1.3 mg/dL (0.2-1); TOT PROT 5.8 g/dl (6.4-8.2)
[2023-09-29] MEDS: POTASSIUM CHLORIDE ORAL LIQUID 20 MEQ/15 ML PO ONE (08:49)
[2023-09-29] MEDS: URSODIOL 300 MG CAPSULE PO SCH (09:50)
[2023-09-29] MEDS: PHYTONADIONE 10 MG/1 ML AMP IVPB ONE (09:51)
[2023-09-29] MEDS: ENOXAPARIN NA (PORCINE) 80 MG/0.8 ML DISP.SYRIN SQ SCH (14:39)
[2023-09-29] MEDS: PIPERACILLIN/TAZOB 3.375 GM 3.375 GM in DEXTROSE 5%-WATER - 50 ML IVPB SCH ×2 (16:06→17:12)
[2023-09-29 16:09] LABS: C-ANCA <1:20 titer (Neg:<1:20)
[2023-09-30 08:25] LABS: INR 1.08 (0.83-1.09); PROTHROMBIN TIME (PATIENT) 12.5 SEC (9.7-13.0)
[2023-09-30 08:29] LABS: BASO % 0.8 % (0-2.0); EOS % 4.3 % (0-4.5); HEMATOCRIT 34.8 % (32.4-45.2); HEMOGLOBIN 11.6 GM/dL (10.7-15.3); LYMPH % 44.6 % (8-40); MCH 33.5 pg (25.7-33.7); MCHC 33.4 g/dl (32.0-36.0); MEAN CELL VOLUME 100.3 fl (80-96); MEAN PLT VOLUME 8.8 fl (7.5-11.1); NEUT % 37.3 % (42.8-82.8); PLATELET COUNT 241 10^3/uL (134-434); POTASSIUM 3.7 mmol/L (3.5-5.1); RBC 3.47 M/mm3 (3.60-5.2); RDW 15.1 % (11.6-15.6); WHITE BLOOD COUNT 4.7 K/mm3 (4.0-10.0)
[2023-09-30 08:37] LABS: ALBUMIN 2.7 g/dl (3.4-5.0); BLOOD UREA NITROGEN 9.8 mg/dL (7-18); CALCIUM 8.4 mg/dL (8.5-10.1)
[2023-09-30 08:42] LABS: BILIRUBIN,TOTAL 1.3 mg/dL (0.2-1)
[2023-09-30 08:43] LABS: TOT PROT 5.8 g/dl (6.4-8.2)
[2023-09-30] MEDS: PANTOPRAZOLE 40 MG TABLET PO SCH (09:24)
[2023-10-01 08:16] LABS: INR 1.1 (0.83-1.09); PROTHROMBIN TIME (PATIENT) 12.7 SEC (9.7-13.0)
[2023-10-01 08:29] LABS: POTASSIUM 3.6 mmol/L (3.5-5.1)
[2023-10-01 08:42] LABS: BASO % 0.3 % (0-2.0); EOS % 3.7 % (0-4.5); HEMATOCRIT 33.2 % (32.4-45.2); HEMOGLOBIN 11.5 GM/dL (10.7-15.3); LYMPH % 44.3 % (8-40); MCH 34.4 pg (25.7-33.7); MCHC 34.7 g/dl (32.0-36.0); MEAN CELL VOLUME 99.3 fl (80-96); MEAN PLT VOLUME 8.8 fl (7.5-11.1); MONO % 11.9 % (3.8-10.2); NEUT % 39.8 % (42.8-82.8); PLATELET COUNT 245 10^3/uL (134-434); RBC 3.34 M/mm3 (3.60-5.2); RDW 15.3 % (11.6-15.6); WHITE BLOOD COUNT 4.6 K/mm3 (4.0-10.0)
[2023-10-01 08:45] LABS: ALBUMIN 2.8 g/dl (3.4-5.0); BLOOD UREA NITROGEN 8.1 mg/dL (7-18); CALCIUM 8.4 mg/dL (8.5-10.1)
[2023-10-01 08:50] LABS: BILIRUBIN,TOTAL 1.3 mg/dL (0.2-1)
[2023-10-02 07:31] LABS: INR 1.07 (0.83-1.09); PROTHROMBIN TIME (PATIENT) 12.4 SEC (9.7-13.0)
[2023-10-02 07:40] LABS: BASO % 0.4 % (0-2.0); EOS % 3.1 % (0-4.5); HEMATOCRIT 33.8 % (32.4-45.2); HEMOGLOBIN 11.5 GM/dL (10.7-15.3); LYMPH % 39.1 % (8-40); MCH 33.7 pg (25.7-33.7); MCHC 34.1 g/dl (32.0-36.0); MEAN CELL VOLUME 98.6 fl (80-96); MEAN PLT VOLUME 8.7 fl (7.5-11.1); MONO % 12.7 % (3.8-10.2); NEUT % 44.7 % (42.8-82.8); PLATELET COUNT 264 10^3/uL (134-434); RBC 3.43 M/mm3 (3.60-5.2); WHITE BLOOD COUNT 4.2 K/mm3 (4.0-10.0)
[2023-10-02 07:46] LABS: POTASSIUM 3.3 mmol/L (3.5-5.1)
[2023-10-02 07:50] LABS: CALCIUM 8.1 mg/dL (8.5-10.1)
[2023-10-02 07:51] LABS: ALBUMIN 2.7 g/dl (3.4-5.0)
[2023-10-02 07:52] LABS: BLOOD UREA NITROGEN 5.8 mg/dL (7-18)
[2023-10-02 07:57] LABS: BILIRUBIN,TOTAL 1.4 mg/dL (0.2-1); TOT PROT 5.8 g/dl (6.4-8.2)
[2023-10-02 09:32] LABS: MAGNESIUM 2.2 mg/dL (1.8-2.4)
[2023-10-02] MEDS: POTASSIUM CHLORIDE ORAL LIQUID 20 MEQ/15 ML PO ONE ×2 (10:04→10:05)
[2023-10-02] MEDS: ENOXAPARIN NA (PORCINE) 80 MG/0.8 ML DISP.SYRIN SQ ONE (12:24)
[2023-10-02 15:41] LABS: MAGNESIUM 2.4 mg/dL (1.8-2.4)
[2023-10-02 15:44] LABS: PHOSPHOROUS 2.5 mg/dL (2.5-4.9)
[2023-10-03 07:48] LABS: BASO % 0.4 % (0-2.0); HEMATOCRIT 34.7 % (32.4-45.2); HEMOGLOBIN 11.8 GM/dL (10.7-15.3); LYMPH % 43.7 % (8-40); MCH 34.1 pg (25.7-33.7); MEAN CELL VOLUME 100.2 fl (80-96); MEAN PLT VOLUME 8.9 fl (7.5-11.1); MONO % 9.1 % (3.8-10.2); NEUT % 44.8 % (42.8-82.8); PLATELET COUNT 301 10^3/uL (134-434); RBC 3.46 M/mm3 (3.60-5.2); RDW 15.2 % (11.6-15.6); WHITE BLOOD COUNT 6.1 K/mm3 (4.0-10.0)
[2023-10-03 08:00] LABS: POTASSIUM 3.7 mmol/L (3.5-5.1)
[2023-10-03 08:07] LABS: CALCIUM 8.3 mg/dL (8.5-10.1)
[2023-10-03 08:09] LABS: BLOOD UREA NITROGEN 7.1 mg/dL (7-18); MAGNESIUM 2.2 mg/dL (1.8-2.4)
[2023-10-03 08:11] LABS: PHOSPHOROUS 2.5 mg/dL (2.5-4.9)
[2023-10-03 08:12] LABS: BILIRUBIN,TOTAL 1.1 mg/dL (0.2-1); TOT PROT 6.6 g/dl (6.4-8.2)
[2023-10-03] MEDS ORDERED: FENTANYL CITRATE/PF 50 MCG/ML VIAL ONE (12:10)
[2023-10-03] MEDS: IOHEXOL 300 MG/ML INFUS..BTL IV ONE (12:39)
[2023-10-03] MEDS: LACTATED RINGERS SOLUTION 1,000 ML/1,000 ML INFUS.BAG IV SCH (13:59)
[2023-10-04] MEDS: PIPERACILLIN/TAZOB 3.375 GM 3.375 GM in DEXTROSE 5%-WATER - 50 ML IVPB SCH ×2 (02:27→16:28)
[2023-10-04] MEDS ORDERED: INSULIN (NOVOLOG) ASPART 100 UNITS/ML 10ML VIAL ONE (06:38)
[2023-10-04 09:06] LABS: BASO % 0.4 % (0-2.0); HEMATOCRIT 34.9 % (32.4-45.2); HEMOGLOBIN 11.9 GM/dL (10.7-15.3); MCHC 34.1 g/dl (32.0-36.0); MEAN CELL VOLUME 99.7 fl (80-96); MEAN PLT VOLUME 9.1 fl (7.5-11.1); MONO % 2.7 % (3.8-10.2); NEUT % 81.9 % (42.8-82.8); PLATELET COUNT 330 10^3/uL (134-434); RDW 15.2 % (11.6-15.6); WHITE BLOOD COUNT 7.4 K/mm3 (4.0-10.0)
[2023-10-04 09:25] LABS: POTASSIUM 4.1 mmol/L (3.5-5.1)
[2023-10-04 09:30] LABS: BLOOD UREA NITROGEN 10.8 mg/dL (7-18); CALCIUM 8.8 mg/dL (8.5-10.1)
[2023-10-04 09:33] LABS: CREATININE 1.1 mg/dL (0.55-1.3)
[2023-10-04 09:34] LABS: BILIRUBIN,DIRECT 0.6 mg/dL (0.0-0.2)
[2023-10-04 09:35] LABS: BILIRUBIN,TOTAL 1.1 mg/dL (0.2-1)
[2023-10-04 09:38] LABS: TOT PROT 6.7 g/dl (6.4-8.2)
[2023-10-04] MEDS: amLODIPine BESYLATE 5 MG TABLET (FP) PO SCH (10:40)
[2023-10-04] MEDS: URSODIOL 300 MG CAPSULE PO SCH (10:40)
[2023-10-04] MEDS: FAMOTIDINE 20 MG TABLET PO SCH (10:40)
[2023-10-04] MEDS: LOSARTAN POTASSIUM 50 MG TABLET PO SCH (10:40)
[2023-10-04] MEDS: PANTOPRAZOLE 40 MG TABLET PO SCH (10:40)
[2023-10-04] MEDS: ACETAMINOPHEN 325 MG TABLET (FP) PO ONE (16:24)
[2023-10-04] MEDS: AMOX TR/POT CLAV 500MG/125MG TABLETS (FP) PO SCH (17:31)
[2023-10-05 06:38] VITALS: BP 143/62; TEMP 98.4
[2023-10-05 07:56] LABS: BASO % 0.7 % (0-2.0); EOS % 0.3 % (0-4.5); HEMATOCRIT 36.5 % (32.4-45.2); LYMPH % 39.2 % (8-40); MCH 33.4 pg (25.7-33.7); MCHC 32.9 g/dl (32.0-36.0); MEAN CELL VOLUME 101.4 fl (80-96); MEAN PLT VOLUME 8.9 fl (7.5-11.1); NEUT % 51.8 % (42.8-82.8); PLATELET COUNT 326 10^3/uL (134-434); RBC 3.61 M/mm3 (3.60-5.2); RDW 15.8 % (11.6-15.6); WHITE BLOOD COUNT 6.7 K/mm3 (4.0-10.0)
[2023-10-05 08:18] LABS: POTASSIUM 4.2 mmol/L (3.5-5.1)
[2023-10-05 08:25] LABS: CALCIUM 8.8 mg/dL (8.5-10.1)
[2023-10-05 08:26] LABS: BLOOD UREA NITROGEN 10.3 mg/dL (7-18); MAGNESIUM 2.3 mg/dL (1.8-2.4)
[2023-10-05 08:31] LABS: BILIRUBIN,TOTAL 0.9 mg/dL (0.2-1); TOT PROT 6.7 g/dl (6.4-8.2)
[2023-10-05 12:22] VITALS: PULSE 80; RESP 17
== END 2023-10-05 10:57 | disposition home health service (06) | DRG 446 ==
LOC: JER 16:37 → JERBED 09-26 00:05 → J4W 09-26 03:18 → OBSVTOIN 09-27 20:45 → J4W 09-28 12:43 → J8W 10-03 14:42
PROVIDERS: ADMIT Internal Medicine; ATTEND Nurse Practitioner Family
PROC: 0FCD8ZZ Extirpation of Matter from Pancreatic Duct, Via Natural or Artificial Opening Endoscopic (ICD-10-PCS; 2023-10-03)
PROC: 0FC98ZZ Extirpation of Matter from Common Bile Duct, Via Natural or Artificial Opening Endoscopic (ICD-10-PCS; principal; 2023-10-03 10:30)
DX: K80.50 Calculus of bile duct without cholangitis or cholecystitis without obstruction (principal); I25.10 Atherosclerotic heart disease of native coronary artery without angina pectoris; E78.5 Hyperlipidemia, unspecified; R74.01 Elevation of levels of liver transaminase levels; E80.6 Other disorders of bilirubin metabolism; K21.9 Gastro-esophageal reflux disease without esophagitis; K57.90 Diverticulosis of intestine, part unspecified, without perforation or abscess without bleeding; G47.33 Obstructive sleep apnea (adult) (pediatric); K76.9 Liver disease, unspecified; Z86.718 Personal history of other venous thrombosis and embolism
CPT/HCPCS: 0241U-QW; 36415; 71045-TC-FY; 71260-TC; 74177-TC; 74183-TC; 76700-TC; 80048; 80053; 80076; 81003; 82248; 82272; 82550; 83516; 83520; 83690; 83735; 83880; 84100; 84484; 85025; 85027; 85610; 85730; 86038; 86140; 86256; 86705; 86707; 86708; 87040; 87086; 87340; 87350; 87517; 87522; 93005; 93010; 93306-TC; 93970-TC; 97116-GP; 97161-GP; 99285-25; G0378; J0131; Q0162; Q9967